=== PATIENT | female | born 1990 | race Caucasian/White ===

== ENCOUNTER 2019-08-13 15:24 | Observation (INO) | payer OTHER, SELFPAY ==
--- NOTE | 2019-08-13 15:45 | OBADM ---
This patient, Danyelle Jha, admitted to the OB room 116 for observation for c/o possible leakage of fluid, vaginal spotting, and abdominal tightening. Patient/family oriented to hospital policies and general routines including ID bracelet, bed and alarms, visiting hours, pain management, procedures, bathroom and other care routines, personal items, smoking policy, room service/diet, and visiting hours. Patient/Family are encouraged to report perceived risks to care and to ask questions if they do not understand what they are told or what they should do.
[2019-08-13 15:54] VITALS: BP 113/67; PULSE 83
[2019-08-13 15:55] VITALS: TEMP 36.5
[2019-08-13 16:00] VITALS: BMI 23.1
[2019-08-13 17:03] VITALS: BP 107/60; PULSE 75
--- NOTE | 2019-08-13 17:30 | P.HP_ITS ---
Obstetrics - Admit Note Admission Note: late entry from 1730 on 08/13/19 29 y/o at 15 weeks here with leakage of fluid and a little spotting. [place] some cramping while driving to the hospital, but all symptoms had resolved by the time I saw her. No fever. Feeling occasional movement. No GI/ symtpoms. AVSS FHR auscultated ABD soft, nontender, gravid EXT nontender Cervix closed per RN. No fluid seen. Bedside ultrasound by me: single, live IUP with FHR, movement, adequate AFV. Fundal placenta. Cervix appears long, closed. A: Leakage of fluid and spotting, no evidence of ROM. Clinically stable. P: Home with precautions. F/u as scheduled.
== END 2019-08-13 17:56 | disposition home or self-care (01) ==
PROVIDERS: Admitting Provider Obstetrics & Gynecology; PCP Family Medicine; Visit Provider Obstetrics & Gynecology
DX: O42.912 Preterm premature rupture of membranes, unspecified as to length of time between rupture and onset of labor, second trimester (principal); O26.852 Spotting complicating pregnancy, second trimester; Z3A.15 15 weeks gestation of pregnancy
CPT/HCPCS: 84112; G0378; G0379

== ENCOUNTER 2019-10-17 22:59 | Observation (INO) | payer OTHER, SELFPAY ==
[2019-10-17 23:22] VITALS: TEMP 36.8
[2019-10-17 23:38] VITALS: BP 130/71; PULSE 84
[2019-10-17 23:45] VITALS: BP 117/57; PULSE 76
[2019-10-17 23:45] LABS: Add Urine Microscopic? NO; Appearance Urine Clear (Clear); Bilirubin Urine Negative (Negative); Blood Urine Negative (Negative); Color Urine Colorless (Yellow); Glucose Urine UA Negative (Negative); Ketones Urine Negative (Negative); Leukocyte Esterase Ur Negative LEU/UL (NEGATIVE); Nitrate Urine Negative (Negative); Protein Urine Negative (Negative); Urobilinogen Urine Negative mg/dL (<2.0)
[2019-10-17 23:51] LABS: Specific Grav Ur 1.003 (1.001-1.035)
[2019-10-18] VITALS (20 sets, daily range): BP systolic 108–115; BP diastolic 54–58; PULSE 77–103; O2SAT 99–100; BMI 24.3
[2019-10-18] MEDS: TERBUTALINE SULFATE 1 MG/ML VIAL 0.25 MG SUB-Q (00:22)
[2019-10-18 01:33] LABS: Fetal Fibronectin Negative
--- NOTE | 2019-10-18 01:34 | LDADM ---
This patient, Danyelle Jha, was admitted to OB Post 117 on 10/17/19 at 22:59. Plans for labor, pain management and were discussed with patient. Patient/family oriented to hospital policies and general routines including ID bracelet, bed and alarms, visiting hours, pain management, procedures, bathroom and other care routines, personal items, smoking policy, room service/diet and guest tray routines, infant security routines, and visiting hours. Patient/Family are encouraged to report perceived risks to care and to ask questions if they do not understand what they are told or what they should do. See OBIX for further documentation.
--- NOTE | 2019-10-21 13:41 | PM.OBTRLD ---
OB - Triage/Final Diagnosis Evaluation Laboratory results: Laboratory Tests 10/17/19 10/18/19 23:32 00:36 Urine Color Colorless Urine Appearance Clear Urine pH 7.0 Ur Specific [place] 1.003 Urine Protein Negative Urine Glucose (UA) Negative Urine Ketones Negative Ur Blood (Man) Negative Urine Nitrate Negative Urine Bilirubin Negative Urine Urobilinogen Negative Ur Leukocyte Esterase Negative Fibronectin Negative Final Diagnosis (1) False labor: Code(s): O47.9 - False labor, unspecified Status: Acute
== END 2019-10-18 02:08 | disposition home or self-care (01) ==
PROVIDERS: Admitting Provider Obstetrics & Gynecology; PCP Family Medicine; Visit Provider Obstetrics & Gynecology
DX: O47.1 False labor at or after 37 completed weeks of gestation (principal); Z3A.40 40 weeks gestation of pregnancy
CPT/HCPCS: 81003; 82731; 87086; 96372; G0378; G0379; J3105

== ENCOUNTER 2019-11-23 10:48 | Outpatient (RCR) | payer OTHER, SELFPAY ==
[2019-11-25] MEDS: RHO(D) IMMUNE GLOBULIN 300 MCG SYRINGE IM (15:23)
== END 2020-02-21 23:59 | disposition home or self-care (01) ==
LOC: ANHLAB 10:48
PROVIDERS: PCP Family Medicine; Visit Provider Obstetrics & Gynecology
DX: O36.0990 Maternal care for other rhesus isoimmunization, unspecified trimester, not applicable or unspecified (principal); Z3A.00 Weeks of gestation of pregnancy not specified; Z29.13 Encounter for prophylactic Rho(D) immune globulin
CPT/HCPCS: 36415; 85461; 90384; 96372; J2790

== ENCOUNTER 2019-12-28 16:22 | Outpatient (RCR) | payer OTHER, SELFPAY ==
[2019-12-28 17:06] VITALS: BP 106/59; PULSE 80
== END 2020-02-09 13:46 | disposition home or self-care (01) ==
LOC: ANHOBOP 16:22
PROVIDERS: PCP Family Medicine; Visit Provider Obstetrics & Gynecology
DX: O36.8130 Decreased fetal movements, third trimester, not applicable or unspecified (principal); Z3A.34 34 weeks gestation of pregnancy
CPT/HCPCS: 59025

== ENCOUNTER 2020-02-02 05:04 | Inpatient (IN) | payer OTHER, SELFPAY ==
[2020-02-02] VITALS (131 sets, daily range): BP systolic 78–131; BP diastolic 40–84; PULSE 60–97; RESP 16; TEMP 36.3–36.6; O2SAT 98–100; BMI 28.3
--- NOTE | 2020-02-02 05:39 | LDADM ---
This patient, Danyelle Jha, was admitted to Labor/Delivery/Recovery 105 on 02/02/20 at 05:04. Plans for labor, pain management and were discussed with patient. Patient/family oriented to hospital policies and general routines including ID bracelet, bed and alarms, visiting hours, pain management, procedures, bathroom and other care routines, personal items, smoking policy, room service/diet and guest tray routines, infant security routines, and visiting hours. Patient/Family are encouraged to report perceived risks to care and to ask questions if they do not understand what they are told or what they should do. See OBIX for further documentation.
[2020-02-02 05:40] LABS: Basophils Percent Auto 0.2 % (0.2-1.2); Eosinophils Percent Auto 0.2 % (0-4.4); Hematocrit 33.2 % (37.0-47.0); Hemoglobin 11.3 g/dL (12.0-15.0); Immature Granulocyte Absolute 0.02 K/mm3 (0.00-0.031); Immature Granulocyte Percent A 0.3 % (0-0.5); Lymphocytes Percent Auto 22.3 % (18.3-44.2); Mean Corpuscular Hemoglobin 30.6 pg (26-34); Mean Platelet Volume 10.9 fl (7.4-10.4); Monocytes Absolute Auto 0.4 K/mm3 (0.1-0.6); Monocytes Percent Auto 6.5 % (2.6-8.5); Neutrophils Absolute Auto 4.4 K/mm3 (1.3-6.7); Neutrophils Percent Auto 70.5 % (45.5-73.1); Platelet Count Result 162 k/mm3 (150-375); Red Blood Count 3.69 M/mm3 (4.2-5.4); Red Cell Distribution Width 13.2 % (11.5-14.5); White Blood Count 6.3 K/mm3 (4.5-10.0)
[2020-02-02] MEDS: LACTATED RINGERS 1,000 ML 125 ML IV CONT ×3 (05:51→08:18)
[2020-02-02] MEDS: OXYTOCIN 30 UNITS/NS 500 ML 30 UNITS/500 ML BAG IV CONT (05:51)
[2020-02-02] MEDS: AMPICILLIN 2 GM/NS 100 ML 2 GM/100 ML BAG IVPB (05:51)
--- NOTE | 2020-02-02 06:47 | PM.IMHP ---
H&P: HPI History of Present Illness Chief complaint: IOL Narrative: Danyelle Jha is a 29 year old female Two 3 P2 whose last menstrual period was 05/04/2019, EDC is 02/02/2020, presents at 40 weeks gestation for induction of labor. She has an 8 week ultrasound confirming dates. She is positive for group B strep Review of Systems Review of Systems: All systems reviewed & are unremarkable except as noted in HPI and below PMFSH Surgical History Surgical History History of laryngoscopy Family History Family History Sibling Family history of thyroid disease Family history of mental disorder Depression Father Family history of hypercholesterolemia Hypertension Social History Social History Smoking status: Never smoker Second hand tobacco smoke exposure: No Alcohol intake: current Substance use: never Gender identity (if verbalized by the patient): Female Spiritual care concerns: No Meds Home Medications and Allergies Home Medications Medication Instructions Recorded Confirmed Type PNV cmb#95-ferrous fumarate-FA 1 tablet PO DAILY 08/13/19 08/13/19 History [] nifedipine [Procardia] 10 mg PO Q8H PRN 01/04/20 01/04/20 History Allergies Allergy/AdvReac Type Severity Reaction Status Date / Time No Known Allergies Allergy Verified 08/13/19 17:10 Vital Signs Vital Signs - 24 hr 02/02/20 05:21 02/02/20 05:31 02/02/20 05:46 Pulse Rate 89 91 80 Blood Pressure 118/72 95/51 L 101/63 02/02/20 06:01 02/02/20 06:31 Pulse Rate 82 82 Blood Pressure 97/62 L 113/67 Exam Const: General: no acute distress Eyes: General: appearance normal, both eyes and all related structures Neck: Neck: supple and no JVD Thyroid: thyroid normal Resp: Effort & Inspection: normal respiratory effort Auscultation: clear to auscultation bilaterally Cardio: Rate: regular rate Rhythm: regular rhythm GI: Inspection: non-distended GI Palp: Yes Soft to palpation, No Tenderness to palpation present (GI) and No Guarding due to palpation present (GI) Auscultation: normal bowel sounds : General: Yes other ( gravid soft uterus) Speculum Exam - Cervix: open ( cervix 2.5/75/2. AROM clear FHTs reassuring) Skin: General skin exam: no rashes or lesions noted Extrem: General: normal to inspection and no edema Psych: Mental Status: mental status grossly normal Affect: normal affect H&P: Results Labs Labs: Short CBC 02/02/20 Range/Units 05:32 WBC 6.3 (4.5-10.0) K/mm3 Hgb 11.3 L (12.0-15.0) g/dL Hct 33.2 L (37.0-47.0) % Plt Count 162 (150-375) k/mm3 Assessment and Plan Additional Plan impression: Term with favorable cervix /positive group B strep Plan: Medical active labor/ group B strep prophylaxis/ spontaneous vaginal delivery is expected. She has an epidural candidate
[2020-02-02 07:14] LABS: Rapid Plasma Reagin Non-Reactive (NonReactive)
--- NOTE | 2020-02-02 07:26 | WPDANESEPP ---
Anes - Eval Pre Procedure Procedure: labor epidural Date/Time: 02/02/20 07:26 Surgeon: anastacio novak Pre Op Diagnosis: IOL Patient Data Age: 29 Gender: F Height: 1.68 m Weight: 79.5 kg Last Vital Signs Pulse 70 02/02/20 07:01 BP 110/66 02/02/20 07:01 Allergies Allergy/AdvReac Type Severity Reaction Status Date / Time No Known Allergies Allergy Verified 08/13/19 17:10 Home Medications Medication Instructions Recorded Confirmed Type PNV cmb#95-ferrous fumarate-FA 1 tablet PO DAILY 08/13/19 08/13/19 History [] nifedipine [Procardia] 10 mg PO Q8H PRN 01/04/20 01/04/20 History Laboratory Tests 02/02/20 02/02/20 02/02/20 05:32 05:32 05:32 WBC 6.3 K/mm3 K/mm3 (4.5-10.0) RBC 3.69 M/mm3 L M/mm3 (4.2-5.4) Hgb 11.3 g/dL L g/dL (12.0-15.0) Hct 33.2 % L % (37.0-47.0) MCV 90.0 fl fl (80-100) MCH 30.6 pg pg (26-34) MCHC 34.0 g/dl g/dl (32-36) RDW 13.2 % % (11.5-14.5) Plt Count 162 k/mm3 k/mm3 (150-375) MPV 10.9 fl H fl (7.4-10.4) Immature Gran % (Auto) 0.3 % % (0-0.5) Neut % (Auto) 70.5 % % (45.5-73.1) Lymph % (Auto) 22.3 % % (18.3-44.2) [place] % (Auto) 6.5 % % (2.6-8.5) Eos % (Auto) 0.2 % % (0-4.4) Baso % (Auto) 0.2 % % (0.2-1.2) Lymph # (Auto) 1.40 K/mm3 K/mm3 (0.9-3.2) [place] # (Auto) 0.4 K/mm3 K/mm3 (0.1-0.6) Eos # (Auto) 0.0 K/mm3 K/mm3 (0-0.3) Baso # (Auto) 0.0 K/mm3 K/mm3 (0.0-0.1) Abs Immat Gran (auto) 0.02 K/mm3 K/mm3 (0.00-0.031) Absolute Neuts (auto) 4.4 K/mm3 K/mm3 (1.3-6.7) Absolute Nucleated RBC 0.0 K/mm3 K/mm3 (0.0-0.012) Nucleated RBC % 0.0 % % (0.0-0.2) RPR Non-reactive (NonReactive) Blood Type O Negative Antibody Screen Positive Antibody Identification Pending Antigen Identification Pending ARNALDO, IgG Interpret Pending ARNALDO, Poly Interpret Pending ARNALDO, Complement Interp Pending Patient hx anesthesia problems: none Family hx anesthesia problems: none PMFSH Surgical History Surgical History History of laryngoscopy Family History Family History Sibling Family history of thyroid disease Family history of mental disorder Depression Father Family history of hypercholesterolemia Hypertension Social History Social History Smoking status: Never smoker Second hand tobacco smoke exposure: No Alcohol intake: current Substance use: never Gender identity (if verbalized by the patient): Female Spiritual care concerns: No Exam Day of Procedure 02/02/20 07:26
[2020-02-02] MEDS: AMPICILLIN 1 GM/NS 50 ML 1 GM/50 ML BAG IVPB (09:46)
--- NOTE | 2020-02-02 12:32 | P.PNOB_ITS ---
OB - PN: Subj Subjective Date/time seen: 02/02/20 12:32 Interval history: fhts reassuring last check 4 cm epidural working OB - PN: Obj Data Labs CBC & Chem 7: 02/02/20 05:32 Labs: Laboratory Results - last 24 hr 02/02/20 02/02/20 02/02/20 05:32 05:32 05:32 WBC 6.3 RBC 3.69 L Hgb 11.3 L Hct 33.2 L MCV 90.0 MCH 30.6 MCHC 34.0 RDW 13.2 Plt Count 162 MPV 10.9 H Immature Gran % (Auto) 0.3 Neut % (Auto) 70.5 Lymph % (Auto) 22.3 [place] % (Auto) 6.5 Eos % (Auto) 0.2 Baso % (Auto) 0.2 Lymph # (Auto) 1.40 [place] # (Auto) 0.4 Eos # (Auto) 0.0 Baso # (Auto) 0.0 Abs Immat Gran (auto) 0.02 Absolute Neuts (auto) 4.4 Absolute Nucleated RBC 0.0 Nucleated RBC % 0.0 RPR Non-reactive Blood Type O Negative Antibody Screen Positive Antibody Identification Passive Due to RH Imm Glob Antigen Identification Cancelled ARNALDO, IgG Interpret Not Performed ARNALDO, Poly Interpret Negative ARNALDO, Complement Interp Not Performed OB - PN A/P Time Spent With Patient Time: Total time spent is greater than 50% in coordination of care (as documented) at patient's floor/unit and/or counseling patient:
--- NOTE | 2020-02-02 14:25 | PM.OBPRVD ---
OB - Delivery Note Procedure Delivery date: 02/02/20 Intrapartal events: None Induction method: AROM Delivery augmentation: pitocin Delivery monitor: external FHT Route of delivery: Episiotomy description: None Laceration description: Perineal - 2nd Degree Delivery repair: vicryl Specimen: No Estimated blood loss (mL): 57 Anesthesia type: Epidural Disposition: floor Complications: amp x 2 for gbs Baby Date of : 02/02/20 Time of : 14:14 Weeks of gestation at delivery: 40 gender: Male Weight (pounds): 9 Weight (ounces): 9 presentation: vertex position: Right Occiput Anterior Placenta delivery description: Spontaneous cord vessel description: 3 Vessels and Nuchal Cord score one minute: 9 score five minutes: 9
--- NOTE | 2020-02-02 14:26 | P.DS_ITS ---
DS: Admitting Diagnosis Admitting Diagnosis Admitting Diagnosis: term iup DS: Summary Time Spent with Patient Time attestation: Total time spent providing and/or coordinating discharge services: Exam Const: General: no acute distress Eyes: General: appearance normal, both eyes and all related structures Neck: Neck: supple and no JVD Thyroid: thyroid normal Resp: Effort & Inspection: normal respiratory effort Auscultation: clear to auscultation bilaterally Cardio: Rate: regular rate Rhythm: regular rhythm GI: Inspection: non-distended GI Palp: Yes Soft to palpation, No Tenderness to palpation present (GI) and No Guarding due to palpation present (GI) Auscultation: normal bowel sounds : General: Yes bladder normal to palpation External Female Exam: normal external appearance Speculum Exam - Vagina: normal vaginal discharge and No vaginal bleeding Speculum Exam - Cervix: nontender Bimanual exam- vagina & uterus: bladder normal to palpation and No Cervical tenderness present OB/external & speculum: No vaginal bleeding Skin: General skin exam: no rashes or lesions noted Extrem: General: normal to inspection and no edema Psych: Mental Status: mental status grossly normal Affect: normal affect DS: Data Data Completed and Pending Labs on day of discharge: Labs from last 24 hours 02/02/20 02/02/20 02/02/20 05:32 05:32 05:32 WBC 6.3 RBC 3.69 L Hgb 11.3 L Hct 33.2 L MCV 90.0 MCH 30.6 MCHC 34.0 RDW 13.2 Plt Count 162 MPV 10.9 H Immature Gran % (Auto) 0.3 Neut % (Auto) 70.5 Lymph % (Auto) 22.3 [place] % (Auto) 6.5 Eos % (Auto) 0.2 Baso % (Auto) 0.2 Lymph # (Auto) 1.40 [place] # (Auto) 0.4 Eos # (Auto) 0.0 Baso # (Auto) 0.0 Abs Immat Gran (auto) 0.02 Absolute Neuts (auto) 4.4 Absolute Nucleated RBC 0.0 Nucleated RBC % 0.0 RPR Non-reactive Blood Type O Negative Antibody Screen Positive Antibody Identification Passive Due to RH Imm Glob Antigen Identification Cancelled ARNALDO, IgG Interpret Not Performed ARNALDO, Poly Interpret Negative ARNALDO, Complement Interp Not Performed Discharge Plan Discharge Attending physician on discharge: Moncho Tinsley Discharging Clinician: Moncho Tinsley Patient Disposition: Home, Self-Care Activity: may shower, no straining, may drive after 2 weeks and pelvic rest Diet: heart healthy Patient Instructions: Antibiotic Form Stand Alone Forms: General Discharge Information Follow-up/Referrals: Moncho Tinsley MD [Physician] - Discharge Medications: Continued PNV cmb#95-ferrous fumarate-FA [] 28 mg iron- 800 mcg Tablet 1 tablet PO DAILY RF: 0 nifedipine [Procardia] 10 mg Capsule 10 mg PO Q8H PRN (Reason: Premature Labor) RF: 0 Date of admission: 02/02/20 05:04 Primary Care Provider: Jassi Waite Admitting Provider: Moncho Tinsley Attending physician on admission: Moncho Tinsley
[2020-02-02] MEDS: OXYTOCIN 30 UNITS/NS 500 ML 30 UNITS/500 ML BAG 125 UNITS IV CONT (15:02)
[2020-02-02] MEDS: BENZOCAINE 20% AER SPR (*SP) 56 GM CAN 1 SPRAY TOPICAL (17:40)
[2020-02-02] MEDS: IBUPROFEN 600 MG TABLET PO (17:40)
[2020-02-02] MEDS: WITCH HAZEL 40 PADS 1 PAD TOPICAL (17:40)
--- NOTE | 2020-02-02 17:55 | OBPPTRN ---
Patient transferred to room #283 via W/C. Support person present. Oriented to unit, room, information board, rooming in, admission packet and security measures. Patient verbalizes understanding.
[2020-02-02] MEDS: ACETAMINOPHEN 325 MG TABLET 650 MG PO (21:30)
[2020-02-03] MEDS: IBUPROFEN 600 MG TABLET PO ×2 (02:40→16:28)
[2020-02-03 05:00] LABS: Hematocrit 30.9 % (37.0-47.0); Hemoglobin 10.3 g/dL (12.0-15.0)
--- NOTE | 2020-02-03 07:34 | WPDANLDPN2 ---
Anes-Prog Note L&D Date/Time: 02/03/20 07:34 Comfortable throughout: labor and delivery Neuraxial method: epidural Epidural/Spinal procedure site: clean & non-tender Neuro status: Neuro function grossly intact. Cardiovascular status: normal Respiratory status: normal Airway patency: baseline Mental status: baseline Post-Op hydration status: normal Vital Signs: Last Vital Signs Temp 36.3 C L 02/02/20 17:47 Pulse 88 02/02/20 17:47 Resp 16 02/02/20 17:47 BP 116/67 02/02/20 17:47 Pulse Ox 98 02/02/20 17:47 I/O: Intake & Output 02/02/20 02/02/20 02/03/20 15:59 23:59 07:59 Intake Total 2049 Output Total 175 Balance 2049 - Post-procedural complaints: none Patient feedback: Patient satisfied with anesthetic care.
[2020-02-03 07:50] VITALS: BP 114/66; PULSE 77; RESP 16; TEMP 36.5; O2SAT 100
[2020-02-03] MEDS: ACETAMINOPHEN 325 MG TABLET 650 MG PO (08:34)
[2020-02-03] MEDS: MULTIVIT/MIN/PREN/FOL AC/IRON TABLET 1 TAB PO (08:35)
[2020-02-03] MEDS: DOCUSATE SODIUM 100 MG CAPSULE PO ×2 (08:35→16:29)
--- NOTE | 2020-02-03 12:30 | PC.NURSE ---
Consult with pt., this is mother's third child to breastfeed. Mother is able to independently latch with appropriate positioning/alignment. She denies any nipple discomfort, is feeding as required and waking to feed if needed. Reviewed feeding cues, frequencies, duration of feedings, feeding elimination flow sheet, and signs of adequate intake. Nipple care reviewed. Instructed mother to call out for RN assistance if she is unable to latch for feeding or she has discomfort with nursing. Instructed feeding should be initiated three hours from start of last feeding or if feeding cues are noted before. Mother voiced understanding of information shared.
[2020-02-03 19:05] VITALS: BP 113/65; PULSE 74; RESP 16; TEMP 36.7; O2SAT 99
--- NOTE | 2020-02-03 22:27 | PC.NURSE ---
Patient viewed the discharge video Mother & Baby Care, The First Two Weeks . Patient was given the opportunity and encouraged to ask questions. Patient verbalized understanding of information shared and has been given the mother/baby guide for home reference.
[2020-02-04] MEDS: ACETAMINOPHEN 325 MG TABLET 650 MG PO (00:42)
[2020-02-04] MEDS: IBUPROFEN 600 MG TABLET PO ×2 (01:33→08:28)
--- NOTE | 2020-02-04 06:40 | P.PNOB_ITS ---
OB - PN: Subj Subjective Date/time seen: 02/04/20 06:40 Interval history: fhts reassuring last check 4 cm epidural working Patient comments: no complaints and pain well controlled [place] baby status: doing well and nursing well OB - PN: Obj Data Labs CBC & Chem 7: 02/03/20 03:30 OB - PN A/P Plan day: 2 Plan: routine care, discharge home and follow up 6 weeks Time Spent With Patient Time: Total time spent is greater than 50% in coordination of care (as documented) at patient's floor/unit and/or counseling patient: Time with patient: less than 15 minutes Review of Systems Review of Systems: All systems reviewed & are unremarkable except as noted in HPI and below Exam Const: General: no acute distress Eyes: General: appearance normal, both eyes and all related structures Neck: Neck: supple and no JVD Thyroid: thyroid normal Resp: Effort & Inspection: normal respiratory effort Auscultation: clear to auscultation bilaterally Cardio: Rate: regular rate Rhythm: regular rhythm GI: Inspection: non-distended GI Palp: Yes Soft to palpation, No Tenderness to palpation present (GI) and No Guarding due to palpation present (GI) Auscultation: normal bowel sounds : General: Yes bladder normal to palpation External Female Exam: normal external appearance Speculum Exam - Vagina: normal vaginal discharge and No vaginal bleeding Speculum Exam - Cervix: nontender Bimanual exam- vagina & uterus: bladder normal to palpation and No Cervical tenderness present OB/external & speculum: No vaginal bleeding Skin: General skin exam: no rashes or lesions noted Extrem: General: normal to inspection and no edema Psych: Mental Status: mental status grossly normal Affect: normal affect
[2020-02-04 07:45] VITALS: BP 102/69; PULSE 67; RESP 18; TEMP 36.8; O2SAT 99
[2020-02-04] MEDS: DOCUSATE SODIUM 100 MG CAPSULE PO (08:28)
[2020-02-04] MEDS: MULTIVIT/MIN/PREN/FOL AC/IRON TABLET 1 TAB PO (08:28)
--- NOTE | 2020-02-04 09:00 | PC.NURSE ---
Mother is able to independently latch infant with appropriate positioning/alignment. She denies any nipple discomfort, is feeding as required and waking to feed if needed. has had at least 8 effective feedings in the past 24 hours, and is currently meeting outcomes for weight, output, jaundice and feeding frequencies. Mother states she feels confident to continue effective at home. Reviewed transition to breast milk, signs of adequate intake, and engorgement/relief. Instructed to call ICP if intake/output less than required. Reviewed regular medications mother is taking. Information provided per Vanesa. Reviewed community resources on the [facility] website and in the Mom/Baby guide. Information on outpatient services provided. Mother has no further questions at this time.
[2020-02-05 15:28] VITALS: BP 121/75; PULSE 73; RESP 16; TEMP 37.3; O2SAT 100
== END 2020-02-04 11:50 | disposition home or self-care (01) | DRG 807 ==
LOC: ANHLDR 05:08 → ANHOB2 18:06
PROVIDERS: Admitting Provider Obstetrics & Gynecology; PCP Family Medicine; Visit Provider Obstetrics & Gynecology
DX: O99.824 Streptococcus B carrier state complicating childbirth (principal); Z37.0 Single live birth; Z3A.40 40 weeks gestation of pregnancy; O70.1 Second degree perineal laceration during delivery; O69.81X0 Labor and delivery complicated by cord around neck, without compression, not applicable or unspecified
CPT/HCPCS: 36415; 84112; 85014; 85018; 85025; 86592; 86850; 86880; 86900; 86901; 86902; A9270; J0290; J2590; J2795; J7120

== ENCOUNTER → 2020-07-19 16:15 | Outpatient (CLI) | payer OTHER, SELFPAY ==
--- NOTE | ~2020-07-19 | US_ITS ---
EXAMINATION: US thyroid DATE: 07/19/2020 16:29 INDICATION: Nontoxic goiter. TECHNIQUE: Multiple ultrasound images of the thyroid were obtained. COMPARISON: Ultrasound 02/10/2019 FINDINGS: The right thyroid lobe measures 4.6 x 1.7 x 1.3 cm. The left thyroid lobe measures 4.6 x 1.0 x 1.7 c m. The thyroid demonstrates diffusely heterogeneous hypoechogenicity and increased vascularity. In t he left thyroid lobe, there is a 6 mm solid, very hyperechoic, [id number] nodule with smooth mar gin without echogenic foci (TI-RADS TR4). IMPRESSION: 1. Heterogeneous, hypervascular thyroid, consistent with chronic lymphocytic (Sae) thyroiditis. 2. Small thyroid nodule, likely not clinically significant. No follow-up is needed. Reviewed, dictated and finalized at location A. [facility] IMPRESSION: 1. Heterogeneous, hypervascular thyroid, consistent with chronic lymphocytic (H ashimoto) thyroiditis. 2. Small thyroid nodule, likely not clinically significant. No follow-up is nee ded.
== END ==
PROVIDERS: Visit Provider Internal Medicine Endocrinology, Diabetes & Metabolism
DX: E04.9 Nontoxic goiter, unspecified (principal)
CPT/HCPCS: 76536

== ENCOUNTER → 2020-12-26 07:47 | Outpatient (CLI) | payer OTHER, SELFPAY ==
--- NOTE | ~2020-12-26 | XR_ITS ---
EXAMINATION: XR thoracic spine 3V DATE: 12/26/2020 08:18 INDICATION: Thoracic radiculopathy TECHNIQUE: AP, lateral and lateral swimmer's views of the thoracic spine were obtained. COMPARISON: None. FINDINGS: There is no fracture, dislocation, or subluxation. The vertebral body heights, alignment, a nd intervertebral disc spaces are normal. Mild mid thoracic dextrocurvature is noted. IMPRESSION: 1. No acute osseous abnormality. Reviewed, dictated and finalized at location A.
--- NOTE | ~2020-12-26 | US_ITS ---
US abdomen complete EXAMINATION: US Abdomen Complete INDICATION: Left-sided abdomen pain PROCEDURE: Realtime High Resolution abdomen ultrasound. COMPARISON: No prior studies for comparison FINDINGS: Gallbladder within normal limits. No gallstones, pericholecystic fluid, gallbladder wall t hickening or biliary dilatation. Common bile duct measures 3 mm. Liver echotexture within normal limits without focal mass. Pancreas within normal limits. Pancreati c tail is obscured by bowel gas. Spleen is unremarkeable. Renal echotexture is within normal limits bilaterally without hydronephrosis, contour deforming mass or renal stone. Right kidney measures 10.8 cm. Left kidney measures 10.5 cm. Visualized aspects of the aorta and IVC are within normal limits. Portal vein is patent. No sonograph ic Dunaway's sign indicated by the technologist. IMPRESSION: 1: Normal abdominal ultrasound. Reviewed, dictated and finalized at location B.
== END ==
PROVIDERS: PCP Physician Assistant; Visit Provider Physician Assistant
DX: R10.9 Unspecified abdominal pain (principal); M54.14 Radiculopathy, thoracic region
CPT/HCPCS: 72072; 76700

== ENCOUNTER 2022-01-23 19:47 | Observation (INO) | payer OTHER, SELFPAY ==
[2022-01-23 20:03] VITALS: BP 112/57; PULSE 75
[2022-01-23 20:13] VITALS: BMI 23.6
[2022-01-23 20:30] LABS: Bilirubin Urine Negative (Negative); Blood Urine Negative (Negative); Glucose Urine UA Negative (Negative); Ketones Urine Negative (Negative); Leukocyte Esterase Ur Negative LEU/UL (Negative); Nitrate Urine Negative (Negative); Protein Urine Negative (Negative); Urobilinogen Urine 0.2 mg/dL (<2.0)
[2022-01-23 20:32] LABS: Color Urine Light Yellow (Yellow)
[2022-01-23 20:33] LABS: Add Urine Microscopic? YES; Appearance Urine Cloudy (Clear)
[2022-01-23 20:36] LABS: Amorphous Sediment Urine Few; Bacteria Urine Trace /hpf; Mucus Urine Rare /lpf; RBC Urine 0-2 /hpf (0-2); Squamous Epithelial Cell Urine Rare /hpf (Few); WBC Urine 0-3 /hpf
--- NOTE | 2022-01-23 21:10 | PC.NURSE ---
Called Dr. Rudd notified pt admisson for cramping. UA result, soft abdomen while pt claim cramping. Pt complains cramping higher than fundus. Okay to discharge at this time. follow up in office in 2 days.
--- NOTE | 2022-02-13 23:55 | PM.OBTRLD ---
OB - Triage/Final Diagnosis Visit Information Comments/Additional reasons for admission: I have assessed the risk for this patient, Danyelle Jha, and determined that she would benefit from observation care. Evaluation Laboratory results: Laboratory Tests 01/23/22 20:17 Urine Color Light yellow Urine Appearance Cloudy H Urine pH 7.0 Ur Specific [place] 1.020 Urine Protein Negative Urine Glucose (UA) Negative Urine Ketones Negative Ur Blood (Man) Negative Urine Nitrate Negative Urine Bilirubin Negative Urine Urobilinogen 0.2 Leukocyte Esterase Rfl Negative Urine RBC 0-2 Urine WBC 0-3 Ur Squamous Epith Cells Rare Amorphous Sediment Few H Urine Bacteria Trace Urine Mucus Rare Final Diagnosis (1) False labor: Code(s): O47.9 - False labor, unspecified Status: Acute
== END 2022-01-23 21:20 | disposition home or self-care (01) ==
PROVIDERS: Admitting Provider Obstetrics & Gynecology; PCP Physician Assistant; Visit Provider Obstetrics & Gynecology
DX: O47.02 False labor before 37 completed weeks of gestation, second trimester (principal); Z3A.18 18 weeks gestation of pregnancy
CPT/HCPCS: 81001; G0378; G0379

== ENCOUNTER 2022-04-11 20:55 | Outpatient (RCR) | payer OTHER, SELFPAY ==
[2022-04-11] MEDS: RHO(D) IMMUNE GLOBULIN 300 MCG/2 ML SYRINGE IM (21:08)
== END 2022-07-08 23:59 | disposition home or self-care (01) ==
LOC: ANHLAB 20:55
PROVIDERS: PCP Physician Assistant; Visit Provider Obstetrics & Gynecology
DX: Z29.13 Encounter for prophylactic Rho(D) immune globulin (principal); O36.0190 Maternal care for anti-D [Rh] antibodies, unspecified trimester, not applicable or unspecified; Z3A.00 Weeks of gestation of pregnancy not specified
CPT/HCPCS: 36415; 85461; 90384; 96372; J2790

== ENCOUNTER 2022-06-04 15:38 | Observation (INO) | payer OTHER, SELFPAY ==
--- NOTE | 2022-06-04 15:38 | OBADM ---
This patient, Danyelle Jha, admitted to the OB room Labor/Delivery/Recovery 103 for observation. Patient/family oriented to hospital policies and general routines including ID bracelet, bed and alarms, visiting hours, pain management, procedures, bathroom and other care routines, personal items, smoking policy, room service/diet, and visiting hours. Patient/Family are encouraged to report perceived risks to care and to ask questions if they do not understand what they are told or what they should do. Pt states she was checked on cervix at MD visit. had vaginal bleeding at home.
--- NOTE | 2022-06-04 16:00 | PC.NURSE ---
SVE 1/thick/high. dark red vaginal bleeding noted on the glove. pt denies feeling of contractions.
--- NOTE | 2022-06-04 16:35 | PC.NURSE ---
called Dr. Wandy Lester notified pt admission for vaginal bleeding. SVE result and reactive tracing. scant amount of dark red beeding with cervical check reported. Okay to discharge
--- NOTE | 2022-06-06 07:39 | PM.OBTRLD ---
OB - Triage/Final Diagnosis Visit Information Reason for evaluation: threatened labor Comments/Additional reasons for admission: I have assessed the risk for this patient, Danyelle Jha, and determined that she would benefit from observation care.
== END 2022-06-04 16:45 | disposition home or self-care (01) ==
PROVIDERS: Admitting Provider Obstetrics & Gynecology; PCP Physician Assistant; Visit Provider Obstetrics & Gynecology
DX: O47.9 False labor, unspecified (principal); Z3A.00 Weeks of gestation of pregnancy not specified
CPT/HCPCS: G0378; G0379

== ENCOUNTER 2022-06-14 05:09 | Inpatient (IN) | payer OTHER, SELFPAY ==
[2022-06-14] VITALS (164 sets, daily range): BP systolic 56–137; BP diastolic 42–100; PULSE 32–146; RESP 16; TEMP 36.4–36.9; O2SAT 98–100; BMI 27.0
[2022-06-14] MEDS: LACTATED RINGERS 1,000 ML 125 ML IV CONT ×2 (05:44→08:35)
[2022-06-14] MEDS: OXYTOCIN 30 UNITS/NS 500 ML 30 UNITS/500 ML BAG IV CONT (05:45)
[2022-06-14 05:48] LABS: Basophils Percent Auto 0.3 % (0.2-1.2); Eosinophils Absolute Auto 0.1 K/mm3 (0-0.3); Eosinophils Percent Auto 0.8 % (0-4.4); Hemoglobin 10.8 g/dL (12.0-15.0); Immature Granulocyte Absolute 0.03 K/mm3 (0.00-0.031); Immature Granulocyte Percent A 0.4 % (0-0.5); Lymphocytes Absolute Auto 1.63 K/mm3 (0.9-3.2); Lymphocytes Percent Auto 22.1 % (18.3-44.2); Mean Corpuscular HGB Conc 32.7 g/dl (32-36); Mean Corpuscular Hemoglobin 29.3 pg (26-34); Mean Corpuscular Volume 89.4 fl (80-100); Mean Platelet Volume 10.3 fl (7.4-10.4); Monocytes Absolute Auto 0.5 K/mm3 (0.1-0.6); Monocytes Percent Auto 6.2 % (2.6-8.5); Neutrophils Absolute Auto 5.2 K/mm3 (1.3-6.7); Neutrophils Percent Auto 70.2 % (45.5-73.1); Platelet Count Result 206 k/mm3 (150-375); Red Blood Count 3.69 M/mm3 (4.2-5.4); Red Cell Distribution Width 14.6 % (11.5-14.5); White Blood Count 7.4 K/mm3 (4.5-10.0)
--- NOTE | 2022-06-14 07:25 | LDADM ---
This patient, Danyelle Jha, was admitted to Labor/Delivery/Recovery 103 on 06/14/22 at 05:09. Plans for labor, pain management and were discussed with patient. Patient/family oriented to hospital policies and general routines including ID bracelet, bed and alarms, visiting hours, pain management, procedures, bathroom and other care routines, personal items, smoking policy, room service/diet and guest tray routines, infant security routines, and visiting hours. Patient/Family are encouraged to report perceived risks to care and to ask questions if they do not understand what they are told or what they should do. See OBIX for further documentation.
--- NOTE | 2022-06-14 07:53 | PM.IMHP ---
H&P: HPI History of Present Illness Date/Time: 06/14/22 07:53 Chief Complaint: Induction of labor Narrative: 32-year-old 4 para 3 whose EDC is 12 14 confirmed by early ultrasound presents at 39 weeks gestation for induction of labor. has been uncomplicated PMFSH Past Medical History Medical History Bilateral carpal tunnel syndrome Surgical History Surgical History History of laryngoscopy Family History Family History Sibling Family history of thyroid disease Family history of mental disorder Depression Father Family history of hypercholesterolemia Hypertension Social History Social History Smoking status: Never smoker Second hand tobacco smoke exposure: No Alcohol intake: current Substance use: never Lack of Transportation: No Lack of Food: Never True Current Housing: I Have Housing Concerned About Future Housing: No Difficulty Paying Gas/Electric Bills: No Difficulty Paying for Meds: No Currently Unemployed: No Education: Bachelor's Degree Difficulty w/ Childcare or Family Care: No Gender identity (if verbalized by the patient): Female Spiritual care concerns: No Meds Home Medications and Allergies Home Medications Medication Instructions Recorded Confirmed Type vit no.95-ferrous 1 tablet PO DAILY 08/13/19 06/14/22 History fumarate 28 mg-folic acid 800 mcg tablet () Allergies Allergy/AdvReac Type Severity Reaction Status Date / Time No Known Allergies Allergy Verified 06/14/22 06:35 Vital Signs Vital Signs - 24 hr 06/14/22 05:23 06/14/22 05:49 06/14/22 06:00 Pulse Rate 91 78 82 Blood Pressure 123/71 106/69 108/70 Oxygen Delivery 06/14/22 06:30 06/14/22 07:00 06/14/22 07:30 Pulse Rate 90 87 85 Blood Pressure 105/72 120/74 106/58 L Oxygen Delivery 06/14/22 07:24 Pulse Rate Blood Pressure Oxygen Delivery Room Air Exam Const: General: cooperative, healthy appearing and comfortable Nutritional Appearance: average body habitus Orientation/consciousness: oriented to person, oriented to place and oriented to time HENMT: Head: normal to inspection Resp: Effort & Inspection: normal respiratory effort Cardio: Rate: regular rate Rhythm: regular rhythm Heart sounds: S1 normal heart sound present and S2 normal heart sound present GI: Inspection: normal to inspection ( gravid soft uterus) Auscultation: normal bowel sounds : External Female Exam: normal external appearance Speculum Exam - Vagina: normal appearance of the vagina Speculum Exam - Cervix: normal appearance of the cervix ( cervix 3/75/2. AROM clear. FHTs reassuring) H&P: Results Labs Labs: Short CBC 06/14/22 Range/Units 05:27 WBC 7.4 (4.5-10.0) K/mm3 Hgb 10.8 L (12.0-15.0) g/dL Hct 33.0 L (37.0-47.0) % Plt Count 206 (150-375) k/mm3 Assessment and Plan Assessment and plan (1) Term : Code(s): Z34.90 - Encounter for supervision of normal , unspecified, unspecified trimester Status: Acute Plan medical induction of labor. Spontaneous vaginal expected. She has an epidural candidate
--- NOTE | 2022-06-14 08:39 | WPDANESEPPF ---
Anes - Initial Pre Proc Eval Procedure: labor epidural Date/Time: 06/14/22 08:39 Surgeon: Moncho Lester MD Pre Op Diagnosis: labor pain Pre Op Diagnosis: IOL Patient Data Age: 32 Gender: F Height: 1.68 m Weight: 76 kg Last Vital Signs Temp 36.4 C 06/14/22 08:00 Pulse 78 06/14/22 08:37 BP 117/54 L 06/14/22 08:37 Pulse Ox 100 06/14/22 08:34 O2 Del Method Room Air 06/14/22 07:24 Allergies Allergy/AdvReac Type Severity Reaction Status Date / Time No Known Allergies Allergy Verified 06/14/22 06:35 Home Medications Medication Instructions Recorded Confirmed Type vit no.95-ferrous 1 tablet PO DAILY 08/13/19 06/14/22 History fumarate 28 mg-folic acid 800 mcg tablet () Laboratory Tests 06/14/22 06/14/22 06/14/22 05:27 05:27 05:27 WBC 7.4 K/mm3 K/mm3 (4.5-10.0) RBC 3.69 M/mm3 L M/mm3 (4.2-5.4) Hgb 10.8 g/dL L g/dL (12.0-15.0) Hct 33.0 % L % (37.0-47.0) MCV 89.4 fl fl (80-100) MCH 29.3 pg pg (26-34) MCHC 32.7 g/dl g/dl (32-36) RDW 14.6 % H % (11.5-14.5) Plt Count 206 k/mm3 k/mm3 (150-375) MPV 10.3 fl fl (7.4-10.4) Immature Gran % (Auto) 0.4 % % (0-0.5) Neut % (Auto) 70.2 % % (45.5-73.1) Lymph % (Auto) 22.1 % % (18.3-44.2) [place] % (Auto) 6.2 % % (2.6-8.5) Eos % (Auto) 0.8 % % (0-4.4) Baso % (Auto) 0.3 % % (0.2-1.2) Lymph # (Auto) 1.63 K/mm3 K/mm3 (0.9-3.2) [place] # (Auto) 0.5 K/mm3 K/mm3 (0.1-0.6) Eos # (Auto) 0.1 K/mm3 K/mm3 (0-0.3) Baso # (Auto) 0.0 K/mm3 K/mm3 (0.0-0.1) Abs Immat Gran (auto) 0.03 K/mm3 K/mm3 (0.00-0.031) Absolute Neuts (auto) 5.2 K/mm3 K/mm3 (1.3-6.7) Absolute Nucleated RBC 0.0 K/mm3 K/mm3 (0.0-0.012) Nucleated RBC % 0.0 % % (0.0-0.2) RPR Pending Blood Type O Negative Antibody Screen Positive Antibody Identification Passive Due to RH Imm Glob Antigen Identification Cancelled ARNALDO, IgG Interpret Not Performed ARNALDO, Poly Interpret Negative ARNALDO, Complement Interp Not Performed Patient hx anesthesia problems: none Family hx anesthesia problems: none Results Review: All pre-operative results and documents have been reviewed as part of the pre-operative evaluation. [facility] Past Medical History Medical History Bilateral carpal tunnel syndrome Surgical History Surgical History History of laryngoscopy Family History Family History Sibling Family history of thyroid disease Family history of mental disorder Depression Father Family history of hypercholesterolemia Hypertension Social History Social History Smoking status: Never smoker Second hand tobacco smoke exposure: No Alcohol intake: current Substance use: never Lack of Transportation: No Lack of Food: Never True Current Housing: I Have Housing Concerned About Future Housing: No Difficulty Paying Gas/Electric Bills: No Difficulty Paying for Meds: No Currently Unemployed: No Education: Bachelor's Degree Difficulty w/ Childcare or Family Care: No Gender identity (if verbalized by the patient): Female Spiritual care concerns: No Anes - Eval Final PreProcedure Day of Procedure 06/14/22 08:39 Patient weight: obese ASA classification: II Anesthetic plan: proceed Anesthesia type and monitoring: regional epidural and standard monitoring Results Review: All pre-operative results and documents have been reviewed as part of the pre-operat
[2022-06-14] MEDS: ONDANSETRON INJ 4 MG/2 ML VIAL IV PUSH (11:15)
--- NOTE | 2022-06-14 12:36 | PM.OBPNLAB ---
Pain Control Date/time seen: 06/14/22 12:36 Pain control: tolerating well and epidural Pelvic Exam Dilation (cm): 4 station: -2 Amniotic membrane status: Leaking
--- NOTE | 2022-06-14 16:25 | PM.OBPNLAB ---
Pain Control Date/time seen: 06/14/22 16:25 Pain control: tolerating well and epidural Pelvic Exam Dilation (cm): 7 Effacement (%): 100 station: -1 Amniotic membrane status: Leaking Contractions Monitor mode: Internal
--- NOTE | 2022-06-14 17:00 | PM.OBPRVD ---
OB - Delivery Note Procedure Delivery date: 06/14/22 Procedure: mil Events: Elective Induction of Labor Induction method: AROM Delivery augmentation: Pitocin Delivery monitor: External FHT and Internal Uterine Route of delivery: Episiotomy description: None Laceration Description: Perineal - 1st Degree Delivery repair: vicryl Specimen: No Quantitative Blood Loss (ml): 60 Anesthesia type: Epidural Disposition: Floor Baby Date of : 06/14/22 Time of : 16:49 Weeks of gestation at delivery: 39 gender: Female Weight (pounds): 7 Weight (ounces): 15 presentation: vertex position: Right Occiput Anterior Placenta delivery description: Spontaneous Cord Vessel Description: 3 Vessels and Delayed Cord Clamping score one minute: 9 score five minutes: 9
[2022-06-14 17:05] LABS: Rapid Plasma Reagin Non-Reactive (NonReactive)
[2022-06-14] MEDS: BENZOCAINE 20% AER SPR (*SP) 56 GM CAN 1 SPRAY TOPICAL (19:46)
[2022-06-14] MEDS: WITCH HAZEL 40 PADS 1 PAD TOPICAL (19:46)
--- NOTE | 2022-06-14 19:50 | OBPPTRN ---
Patient transferred to post room #285 via w/c. Support person, Serjio, present. Oriented to unit, room, information board, rooming in, admission packet and security measures. Patient verbalizes understanding.
[2022-06-14] MEDS: IBUPROFEN 600 MG TABLET PO (20:30)
[2022-06-14] MEDS: ACETAMINOPHEN 325 MG TABLET 650 MG PO (21:26)
[2022-06-15 01:00] VITALS: BP 108/59; PULSE 74; RESP 16; TEMP 36.9; O2SAT 99
[2022-06-15] MEDS: IBUPROFEN 600 MG TABLET PO ×3 (02:40→16:31)
[2022-06-15 05:30] VITALS: BP 106/66; PULSE 70; RESP 14; TEMP 36.9; O2SAT 99
[2022-06-15] MEDS: ACETAMINOPHEN 325 MG TABLET 650 MG PO ×3 (05:41→20:11)
[2022-06-15 05:44] LABS: Hematocrit 27.7 % (37.0-47.0); Hemoglobin 8.7 g/dL (12.0-15.0)
[2022-06-15 08:45] VITALS: BP 111/66; PULSE 85; RESP 16; TEMP 36.2; O2SAT 99
[2022-06-15] MEDS: POLYSACCHARIDE IRON COMPLEX 150 MG CAPSULE PO ×2 (08:52→16:31)
[2022-06-15] MEDS: MULTIVIT/MIN/PREN/FOL AC/IRON TABLET 1 TAB PO (08:52)
[2022-06-15] MEDS: DOCUSATE SODIUM 100 MG CAPSULE PO ×2 (08:52→16:31)
--- NOTE | 2022-06-15 08:58 | WPDANLDPN2 ---
Anes-Prog Note L&D Date/Time: 06/15/22 08:58 Comfortable throughout: labor and delivery Neuraxial method: epidural Epidural/Spinal procedure site: clean & non-tender Neuro status: Neuro function grossly intact. Cardiovascular status: normal Respiratory status: normal Airway patency: baseline Mental status: baseline Post-Op hydration status: normal Vital Signs: Last Vital Signs Temp 98.5 F 06/15/22 05:30 Pulse 70 06/15/22 05:30 Resp 14 06/15/22 05:30 BP 106/66 06/15/22 05:30 Pulse Ox 99 06/15/22 05:30 O2 Del Method Room Air 06/14/22 20:15 Pain score (VAS): 0 I/O: Intake & Output 06/14/22 06/15/22 06/15/22 23:59 07:59 15:59 Intake Total 480 Output Total 75 Balance 405 Post-procedural complaints: none Patient feedback: Patient satisfied with anesthetic care.
[2022-06-15 11:46] VITALS: BP 94/55; PULSE 78; RESP 16; TEMP 37.1; O2SAT 98
--- NOTE | 2022-06-15 14:53 | PM.DS ---
DS: Admitting Diagnosis Discharge Date 06/16/2022 Admitting Diagnosis term DS: Discharge Diagnosis Discharge Diagnosis (1) Term : Code(s): Z34.90 - Encounter for supervision of normal , unspecified, unspecified trimester Status: Acute DS: Summary Hospital Course Reason for hospitalization: patient was admitted for induction of labor at term Hospital Course: patient was admitted for induction of labor at term. She underwent spontaneous vaginal delivery. Hospital course was. She remained she complaints. Time Spent with Patient Time attestation: Total time spent providing and/or coordinating discharge services: Exam Const: General: cooperative, healthy appearing and comfortable Nutritional Appearance: average body habitus Orientation/consciousness: oriented to person, oriented to place and oriented to time HENMT: Head: normal to inspection Resp: Effort & Inspection: normal respiratory effort GI: Inspection: normal to inspection DS: Data Data Completed and Pending Labs on day of discharge: Labs from last 24 hours 06/15/22 06/14/22 05:38 05:27 Hgb 8.7 L Hct 27.7 L RPR Non-reactive Discharge Plan Discharge Attending physician on discharge: Moncho Garcia Discharging Clinician: Moncho Garcia Patient Disposition: Home, Self-Care Activity: may shower, no straining and pelvic rest Diet: regular Discharge Instructions: Call or return if temperature above 100.4? F, increased abdominal pain, increased vaginal bleeding or any new problems. Education: Mom and Baby Guide Given to: Mother Follow-Up: Call your delivering provider's office for an appointment to be seen in: 6 Weeks Mom and baby should come to the [facility] for the follow-up appointment. Appointment Date/Time: June 18, 2022 at 9:00 am What to expect at your follow-up visit: Call [phone] if you are unable to keep your appointment time. BREAST CARE: * Wear a snug supportive bra. * For engorgement discomfort: Breast Feeding: * Apply warm moist washcloths * Express milk as needed to relieve engorgement * Wear loose clothing * For sore nipples: * Identify correct latch-on * Apply warm moist washcloths before and after nursing * Air dry nipples after nursing * May apply Lansinoh cream to nipples EPISIOTOMY/PERINEAL CARE: * Until bleeding stops, use your josafat bottle after urinating * Change your pad frequently throughout the day * You may take sitz baths several times a day (fill your bathtub with warm water and soak for 20 minutes.) Do NOT bathe in the water * No tub baths until seen by your physician - You may shower ACTIVITY: * Rest as much as possible. * Do not exercise or lift anything heavier than your baby (such as laundry or other children.) * Avoid stairs or driving as much as possible. * Do not put anything into the vagina. No douching, tampons, or sexual activity until seen by physician. NOTIFY PHYSICIAN IF YOU HAVE ANY QUESTIONS OR IF ANY OF THE FOLLOWING SYMPTOMS OCCUR: * If your episiotomy or incision becomes red, swollen, or more painful than what you have experienced in the hospital. * If your vaginal bleeding becomes foul smelling. * If your vaginal bleeding becomes more heavy than a period or if your bleeding changes from pink to bright red. However, you may pass an occasional walnut-sized clot once or twice for the first week . * If you experience a sharp, shooting pain in you calves. * If you discover a hard, reddened area on your breast or if you experience flu-like symptoms. DIET: * Eat regular, well-balanced meals. * Drink plenty of fluids daily. If , drink to thirst. Stand Alone Forms: General Discharge Information Follow-up/Referrals: Moncho Garcia MD [Physician] - Discharge
--- NOTE | 2022-06-15 15:31 | PC.NURSE ---
[id number] Reacquainted myself to the parents and consulted with patient to assess needs related to . Mother led the conversation with her?plans to feed?her , has a good history with and the?experience so far. Mother voiced understanding of information and requested assistance assessing latch related to the pinching pain at times. Mother works well with her infant with encouragement and education. Reviewed positioning and ear, shoulder, hip alignment, supporting the breast, asymmetrical latch (off-center), leading with the chin with a big open side gape and mother latches infant using the flipple technique. Encouraged mother to bring her to her breast not allowing infant to latch while laying on the boppy with her leaning over. Suggested mother latch effectively, then support her good latch reminding her of the stage of . Infant latched optimally to the right breast in cross cradle position. Mother denies pain, then after 10 minutes detaches related to pinching pain. Nipple is somewhat misshaped. Education given to mother of how to visualize suck/swallow ratios and visualize drinking at the breast while . Infant was able to maintain latch without discomfort to mother for awhile. Nipple care reviewed with optimal latch and good positioning. was repositioned to the left breast to practice latching optimally using football positioning. is content, hands open, quietly awake demonstrating no feeding cues. Mother is feeding appropriately for growth of infant and understands stimulating infant to eat if needed. Infant has had appropriate feedings in the last 24 hours meets the outcomes for weight, output and jaundice at this time. Mother states she is confident to continue effectively her at home or when to call for assistance and denies any additional assistance or education at this time. Reinforced understanding of milk production, transition of milk, signs of adequate intake, prevention/relief of engorgement, responsive after visualizing feeding cues, the different methods of stimulating infant to breastfeed 2-3 hours after the start of the last feeding, community resources, medication information reviewed per [employer] and when to call a provider using the resource of the mom and baby guide/[facility] website. Mother voiced understanding of the education shared. Reported to the primary RN.
--- NOTE | 2022-06-15 18:32 | PC.NURSE ---
pt passed an egg sized clot in the toliet, fundus is firm at 1 below. Pt told to call out if she passes another clot.
[2022-06-15 20:12] VITALS: BP 110/70; PULSE 74; RESP 16; TEMP 36.6; O2SAT 100
--- NOTE | 2022-06-16 08:35 | PM.OBPNVD ---
OB - PN: Subj Subjective Date/time seen: 06/16/22 08:35 Narrative: Pain OK. Would like to go home. OB - PN: Obj Data Labs 06/15/22 05:38 OB - PN A/P Plan Comments: A: PPD#2, doing well. P: Home to f/u 6 weeks. Exam Psych: Other: AVSS ABD soft, nontender, fundus firm EXT nontender
--- NOTE | 2022-06-16 08:38 | PM.OBDSVD ---
DS: Admitting Diagnosis Discharge Date 06/16/22 Admitting Diagnosis IUP at 39 weeks DS: Discharge Diagnosis Discharge Diagnosis (1) (normal spontaneous vaginal delivery): Code(s): O80 - Encounter for full-term uncomplicated delivery Status: Acute OB - DS: Summary OB Procedures : None OB Procedures Intrapartum: Spontaneous Vag Delivery OB Procedures: : None Time Spent with Patient Time attestation: Total time spent providing and/or coordinating discharge services: Discharge Plan Discharge Attending physician on discharge: Moncho Garcia Discharging Clinician: Moncho Garcia Patient Disposition: Home, Self-Care Activity: may shower, no straining and pelvic rest Diet: regular Discharge Instructions: Call or return if temperature above 100.4? F, increased abdominal pain, increased vaginal bleeding or any new problems. Stand Alone Forms: General Discharge Information Follow-up/Referrals: Moncho Garcia MD [Physician] - Discharge Medications: New ferrous sulfate 325 mg (65 mg iron) tablet 325 mg PO DAILY Qty: 30 0RF ibuprofen 600 mg tablet 600 mg PO Q6H PRN (Reason: cramps) Qty: 30 0RF Continued PNV cmb#95-ferrous fumarate-FA [] 28 mg iron- 800 mcg Tablet 1 tablet PO DAILY Date of admission: 06/14/22 05:09 Primary Care Provider: GageKaren Admitting Provider: Moncho Garcia Attending physician on admission: Moncho Garcia Condition: Stable
[2022-06-16] MEDS: DOCUSATE SODIUM 100 MG CAPSULE PO (09:09)
[2022-06-16] MEDS: POLYSACCHARIDE IRON COMPLEX 150 MG CAPSULE PO (09:09)
[2022-06-16] MEDS: MULTIVIT/MIN/PREN/FOL AC/IRON TABLET 1 TAB PO (09:09)
[2022-06-16 09:10] VITALS: BP 109/66; PULSE 78; RESP 18; TEMP 36.5; O2SAT 99
[2022-06-16] MEDS: IBUPROFEN 600 MG TABLET PO (09:10)
[2022-06-18 09:26] VITALS: BP 111/69; PULSE 70; RESP 20; TEMP 37.2; O2SAT 99
== END 2022-06-16 10:27 | disposition home or self-care (01) | DRG 807 ==
LOC: ANHOB2 06-16 09:33 → ANHLDR 06-19 09:52 → ANHOB2 06-19 09:52
PROVIDERS: Admitting Provider Obstetrics & Gynecology; PCP Physician Assistant; Visit Provider Obstetrics & Gynecology
DX: O62.3 Precipitate labor (principal); Z37.0 Single live birth; O70.0 First degree perineal laceration during delivery; Z3A.39 39 weeks gestation of pregnancy
CPT/HCPCS: 36415; 85014; 85018; 85025; 86592; 86850; 86880; 86900; 86901; 86902; A9270; J2405; J2590; J2795; J7120

== ENCOUNTER 2024-02-14 09:56 | Outpatient (CLI) | payer OTHER, SELFPAY ==
--- NOTE | ~2024-02-14 | XR_ITS ---
Right ankle Technique: AP and lateral views were obtained. Clinical History: Joint pain Findings: No acute fracture or dislocation is seen. Osseous alignment is anatomic. Ankle mortise and other visualized joint spaces are preserved. Soft tissues are otherwise unremarkable. Impression: Unremarkable right ankle. Reviewed, dictated and finalized at location . Impression: Unremarkable right ankle.
--- NOTE | ~2024-02-14 | XR_ITS ---
Left foot Technique: AP and lateral views were obtained. Clinical History: Joint pain Findings: No acute fracture or dislocation is seen. Osseous alignment is anatomic. Joint spaces are p reserved without erosive or degenerative change. Soft tissues are unremarkable. Impression: Unremarkable left foot radiographs. Reviewed, dictated and finalized at location . Impression: Unremarkable left foot radiographs.
--- NOTE | ~2024-02-14 | XR_ITS ---
Right foot Technique: AP and lateral views were obtained. Clinical History: Joint pain Findings: No acute fracture or dislocation is seen. Osseous alignment is anatomic. Joint spaces are p reserved without erosive or degenerative change. Soft tissues are unremarkable. Impression: Unremarkable right foot radiographs. Reviewed, dictated and finalized at location . Impression: Unremarkable right foot radiographs.
--- NOTE | ~2024-02-14 | XR_ITS ---
Left ankle Technique: AP and lateral views were obtained. Clinical History: Joint pain Findings: No acute fracture or dislocation is seen. Osseous alignment is anatomic. Ankle mortise and other visualized joint spaces are preserved. Soft tissues are otherwise unremarkable. Impression: Unremarkable left ankle. Reviewed, dictated and finalized at location . Impression: Unremarkable left ankle.
--- NOTE | ~2024-02-14 | XR_ITS ---
Left wrist Technique: PA and lateral views were obtained. Clinical History: Joint pain Findings: No acute fracture or dislocation is seen. Osseous alignment is anatomic. Joint spaces are p reserved. Soft tissues are unremarkable. Impression: Unremarkable left wrist radiographs. Reviewed, dictated and finalized at location M. Impression: Unremarkable left wrist radiographs.
--- NOTE | ~2024-02-14 | XR_ITS ---
Left Hand Technique: PA and lateral views were obtained. Clinical History: Joint pain Findings: No acute fracture or dislocation is seen. Osseous alignment is anatomic. Joint spaces are p reserved. Soft tissues are unremarkable. Impression: Unremarkable left hand. Reviewed, dictated and finalized at location M. Impression: Unremarkable left hand.
--- NOTE | ~2024-02-14 | XR_ITS ---
Right Hand Technique: PA and lateral views were obtained. Clinical History: Joint pain Findings: No acute fracture or dislocation is seen. Osseous alignment is anatomic. Joint spaces are p reserved. Soft tissues are unremarkable. Impression: Unremarkable right hand. Reviewed, dictated and finalized at location M. Impression: Unremarkable right hand.
--- NOTE | ~2024-02-14 | XR_ITS ---
AP and oblique views of the bilateral SI joints. Clinical history: Joint pain FINDINGS: No fracture or dislocation. Visualized SI joints and hip joints are preserved. No erosive o r sclerotic change seen. No degenerative change. Soft tissues are unremarkable. IMPRESSION: Unremarkable exam. Reviewed, dictated and finalized at location . IMPRESSION: Unremarkable exam.
--- NOTE | ~2024-02-14 | XR_ITS ---
Right wrist Technique: PA and lateral views were obtained. Clinical History: Joint pain Findings: No acute fracture or dislocation is seen. Osseous alignment is anatomic. Joint spaces are p reserved. Soft tissues are unremarkable. Impression: Unremarkable right wrist radiographs. Reviewed, dictated and finalized at location M. Impression: Unremarkable right wrist radiographs.
== END 2024-02-14 09:57 | disposition home or self-care (01) ==
LOC: ANHIMG 10:00
PROVIDERS: PCP Physician Assistant; Visit Provider Nurse Practitioner
DX: M25.50 Pain in unspecified joint (principal)
CPT/HCPCS: 72202; 73100; 73120; 73600; 73620

== ENCOUNTER 2025-04-24 09:36 | Outpatient (CLI) | payer OTHER, SELFPAY ==
--- OUTSIDE RECORDS SUMMARY | 2024-05-23 16:00 | XMS_ITS ---
Author Organization [facility] Address [address] [address] Care Team Providers Care Yoke Presser Name Role Phone Jyoti Lucia Primary Care Provider [phone] Migration, Provider Unavailable Unavailable REASON FOR VISIT Multum To Medispan Conversion Encounter Medications Medication SIG (Take, Route, Frequency, Duration) Notes Start Date End Date Status Unithroid 50 MCG (0.05 MG) 1 TAB(S) ORALLY ONCE A DAY; Duration: 90 DAYS *Please review and pick correct strength-formulation from Medispan options. If intended option is not shown, discontinue and re-order from Quick Search* 02/07/2024 Active Encounters Encounter Location Date Provider Diagnosis [facility] [address] [address] 05/23/2024 Provider Migration Plan Of Treatment No Information Progress Notes * Danyelle LOZADADOB:1989 (35 yo F)Acc No.[id number]:05/23/2024 Patient: Danyelle CASTILLO Provider: Laurel calix Migration :1990 A ge:34 Y S ex:Female Date:05/23/2024 Phone: Address:[facility] [address] [id number] Pcp:Jyoti Lucia Subjective: * Chief Complaints: * 1 . Multum To Medispan Conversion Encounter. * Medical History: * Medications: T aking Unithroid 50 MCG (0.05 MG) TABLET 1 TAB(S) ORALLY ONCE A DAY , Notes to Pharmacist: *Please review and pick correct strength-formulation from Medispan options. If intended option is not shown, discontinue and re-order from Quick Search* Objective: * Vitals: Assessment: Plan: * Treatment: * Billing Information: * Visit Code: * Procedure Codes: * Electronic signature of Prov ider Migration on 04/24/2025 at 09:42 AM CDT Sign off status: Pending * Provider: Laurel calix Migration Date: 07/23/2023 Generated for Bhumi carmona/Rick/Chio on: 09:42 AM CDT
--- NOTE | ~2025-04-24 | US_ITS ---
EXAMINATION: US abdomen complete, 04/24/2025 9:55 CDT HISTORY: Leukopenia, unspecified type COMPARISON: None Technique: Mauricio-scale and color Doppler images were obtained. Findings: LIVER: No liver lesions are identified. . The liver measures 16.8 cm. GALLBLADDER/BILIARY: Unremarkable.No cholelithiais, wall thickening or pericholecystic fluid. No biliary dilatation. CBD 5.5 mm. [place] sign negative. PANCREAS: Unremarkable. SPLEEN: Spleen measures 11.3 cm.. KIDNEYS: Right Kidney: Right kidney 10 x 4.7 x 4.9 cm, normal. Left Kidney: Left kidney 9 x 5 x 4.7 cm, normal. AORTA: Normal caliber aorta. IVC: Unremarkable. FREE FLUID: None. Impression: No acute abnormality. Reviewed, dictated and finalized at location P. Impression: No acute abnormality.
--- OUTSIDE RECORDS SUMMARY | 2025-04-24 09:42 | XMS_ITS | Data Portability ---
Author Organization [facility], Main Office Address [address] [place] [address] Assessment No assessment recorded. Plan of Treatment Reminders Order Date Submit Date Provider Last Modified By Organization Details Last Modified Time Details Appointments None recorded. Lab iron + TIBC + ferritin, serum 2022 023 [employer] [facility], [address], [place], [place], [address], 3 06:55:05 CBC w/ auto diff 2022 023 [facility], [address], [place], [place], [address], 3 06:55:07 lipid panel, serum 2022 023 [employer]li [facility], [address], [place], [place], [address], 3 13:10:41 CBC w/ auto diff 2022 023 [facility], [address], [place], [place], [address], 3 13:10:42 HbA1c (hemoglobi n A1c), blood 2022 023 [employer] [facility], [address], [place], [place], [address], 3 13:10:41 Referral None recorded. Procedures None recorded. Surgeries None recorded. Imaging MRI, brain, w/wo contrast - no auth required 2022 023 [facility], [address] [place] [address] , [place], [address], 15:58:32 Medication Orders None recorded. Patient TargetsNo targets recorded. Patient InstructionsNo instructions recorded. Reason for Referral None Reported. Results Created Date Observation Date Name Description Value Unit Range Abnormal Flag Note LastModifiedBy Organization Detail LastModifiedTime 08/17/1908/24/2022 TSH+F REE T4 TSH 0.01 mIU/L low Refer ence Range > or = 20 Years 0.40- 4.50 Pregn ugo Range s First trime ster 0.26- 2.66 Secon d trime ster 0.55- 2.73 Third trime ster 0.43- 2.91 Not Available [facility] [address], [address], 08/24/2022 19:05:52 08/17/1908/24/2022 TSH+F REE T4 T4, free 2.1 NG/dL 0.8-1. 8 high Not Available [address], [address], 08/24/2022 19:05:52 08/17/19 23 08/24/2022 T3, FREE T3, free 6.1 pg/mL 2.3-4. 2 high Not Available [facility] [address], [address], 08/24/2022 19:05:52 08/17/19 23 08/24/2022 VITAM IN B12/F OLATE , SERUM PANEL vitamin B12 488 pg/mL 200-11 00 normal Not Available [facility] [address], [address], 08/24/2022 19:05:51 08/17/19 23 08/24/2022 VITAM IN B12/F OLATE , SERUM PANEL folate, serum >24.0 NG/mL normal Refer ence Range Low: <3.4 Borde rline : 3.4-5 .4 Danielle l: >5.4 Not Available [facility] [address] [place], [address], 08/24/2022 19:05:51 08/17/19 23 08/24/2022 THYRO ID PEROX IDASE ANTIB ODIES thyroid peroxidase antibodies 296 IU/mL <9 high Not Available [facility] [address] [place], [address], 08/24/2022 19:05:51 08/17/19 23 08/24/2022 TSI (THYR OID STIMU LATIN G IMMUN OGLOB ULIN) tsi <89 %_bas monae <140 Thyro id stimu latin g immun oglob ulins (TSI) can engag e the TSH medical records receptionist tors resul ting in hyper thyro idism in Grave s' disea se patie nts. TSI level s can be usefu l in monit oring the clini hi outco me of Grave s' disea se as well as asses sing the poten tial for hyper thyro idism from mater nal-f etal trans piotr. TSI resul ts great er than or equal to (>=) 140% of the Refer ence Contr ol are consi dered posit mona. NOTE: A serum TSH level great er than 350 micro -Inte rnati onal Units /mL can inter fere with the TSI bioas say and poten tiall y give false posit mona resul ts. Patie nts who are pregn ant and are suspe cted of havin g hyper thyro idism shoul d have both TSI and human Chori onic Gonad otrop in (hCG) tests measu red. A serum hCG level great er than 40,62 5 mIU/m L can inter fere with the TSI bioas say and may give false negat mona resul ts. In these patie nts it is recom job d that a secon d TSI be obtai travis when the hCG angy ntrat ion falls below 40,62 5 mIU/m L (usua lly after appro ximat mac 20-we eks gesta tion) . The ahmet tical perfo rmanc e artie cteri stics of this assay have been deter mined by [facility] . The modif icati ons have not been clear ed or appro po by the FDA. This assay has been valid ated pursu ant to the CLIA regul ation s and is used for clini hi purpo ses. Not Available [facility] [address], [address], 08/24/2022 19:05:50 08/17/19 23 08/24/2022 COMPR EHENS MONA METAB OLIC PANEL creatinine 0.70 mg/dL 0.50-0 .97 normal Not Available [facility] [address], [address], 08/24/2022 19:05:50 08/17/19 23 08/24/2022 COMPR EHENS MONA METAB OLIC PANEL glucose 80 mg/dL 65-139 normal Non-f astin g refer ence inter kim Not Available [facility] [address], [address], 08/24/2022 19:05:50 08/17/19 23 08/24/2022 COMPR EHENS MONA METAB OLIC PANEL urea nitrogen (BUN) 19 mg/dL 7-25 normal Not Available [address], [address], 08/24/2022 19:05:50 08/17/1908/24/2022 COMPR EHENS MONA METAB OLIC PANEL eGFR 119 mL/mi n/1.7 3m2 > or = 60 normal The eGFR is based on the CKD-E PI 2020 equat ion. To calcu late the new eGFR from a previ ous Creat inine or Cysta tin C resul t, go to https ://dave inman.corinne tabor.o sohan/sera srivastava s/ kdoqi /gfr% 5Fcal culat or Not Available [facility] [address] [place], [address], 08/24/2022 19:05:50 08/17/19 23 08/24/2022 COMPR EHENS MONA METAB OLIC PANEL BUN/creatini ne ratio not applic able (calc ) 6-22 Not Available [address], [address], 08/24/2022 19:05:50 08/17/19 23 08/24/2022 COMPR EHENS MONA METAB OLIC PANEL sodium 141 mmol/ L 135-14 6 normal Not Available [address], [address], 08/24/2022 19:05:50 08/17/19 23 08/24/2022 COMPR EHENS MONA METAB OLIC PANEL potassium 4.1 mmol/ L 3.5-5. 3 normal Not Available [address], [address], 08/24/2022 19:05:50 08/17/19 23 08/24/2022 COMPR EHENS MONA METAB OLIC PANEL chloride 108 mmol/ L 98-110 normal Not Available [address], [address], 08/24/2022 19:05:50 08/17/19 23 08/24/2022 COMPR EHENS MONA METAB OLIC PANEL carbon dioxide 25 mmol/ L 20-32 normal Not Available [address], [address], 08/24/2022 19:05:50 08/17/19 23 08/24/2022 COMPR EHENS MONA METAB OLIC PANEL calcium 9.0 mg/dL 8.6-10 .2 normal Not Available [address], [address], 08/24/2022 19:05:50 08/17/19 23 08/24/2022 COMPR EHENS MONA METAB OLIC PANEL protein, total 6.8 g/dL 6.1-8. 1 normal Not Available [address], [address], 08/24/2022 19:05:50 08/17/19 23 08/24/2022 COMPR EHENS MONA METAB OLIC PANEL albumin 4.2 g/dL 3.6-5. 1 normal Not Available [address], [address], 08/24/2022 19:05:50 08/17/19 23 08/24/2022 COMPR EHENS MONA METAB OLIC PANEL globulin 2.6 g/dL_ (calc ) 1.9-3. 7 normal Not Available [address], [address], 08/24/2022 19:05:50 08/17/19 23 08/24/2022 COMPR EHENS MONA METAB OLIC PANEL albumin/glob ulin ratio 1.6 (calc ) 1.0-2. 5 normal Not Available [address], [address], 08/24/2022 19:05:50 08/17/19 23 08/24/2022 COMPR EHENS MONA METAB OLIC PANEL bilirubin, total 0.4 mg/dL 0.2-1. 2 normal Not Available [address], [address], 08/24/2022 19:05:50 08/17/19 23 08/24/2022 COMPR EHENS MONA METAB OLIC PANEL alkaline phosphatase 64 U/L 31-125 normal Not Available [facility] [address], [address], 08/24/2022 19:05:50 08/17/19 23 08/24/2022 COMPR EHENS MONA METAB OLIC PANEL AST 36 U/L 10-30 high Not Available [address] [place], [address], 08/24/2022 19:05:50 08/17/19 23 08/24/2022 COMPR EHENS MONA METAB OLIC PANEL ALT 41 U/L 6-29 high Not Available [address], [address], 08/24/2022 19:05:50 10/21/19 23 10/25/2022 COMPR EHENS MONA METAB OLIC PANEL glucose 79 mg/dL 65-139 normal Non-f astin g refer ence inter kim Not Available [address], [address], 10/25/2022 20:15:08 10/21/19 23 10/25/2022 COMPR EHENS MONA METAB OLIC PANEL urea nitrogen (BUN) 20 mg/dL 7-25 normal Not Available [address], [address], 10/25/2022 20:15:08 10/21/19 23 10/25/2022 COMPR EHENS MONA METAB OLIC PANEL creatinine 0.82 mg/dL 0.50-0 .97 normal Not Available [address], [address], 10/25/2022 20:15:08 10/21/19 23 10/25/2022 COMPR EHENS MONA METAB OLIC PANEL eGFR 99 mL/mi n/1.7 3m2 > or = 60 normal The eGFR is based on the CKD-E PI 2020 equat ion. To calcu late the new eGFR from a previ ous Creat inine or Cysta douglas C resul t, go to https ://dave tabor.ruslan parry/sera ontiveros/ kdoqi /gfr% 5Fcal culat or Not Available [address], [address], 10/25/2022 20:15:08 10/21/19 23 10/25/2022 COMPR EHENS MONA METAB OLIC PANEL BUN/creatini ne ratio NOT APPLIC ABLE (calc ) 6-22 Not Available [address], [address], 10/25/2022 20:15:08 10/21/19 23 10/25/2022 COMPR EHENS MONA METAB OLIC PANEL sodium 137 mmol/ L 135-14 6 normal Not Available [address], [address], 10/25/2022 20:15:08 10/21/19 23 10/25/2022 COMPR EHENS MONA METAB OLIC PANEL potassium 4.1 mmol/ L 3.5-5. 3 normal Not Available [address], [address], 10/25/2022 20:15:08 10/21/19 23 10/25/2022 COMPR EHENS MONA METAB OLIC PANEL chloride 102 mmol/ L 98-110 normal Not Available [address], [address], 10/25/2022 20:15:08 10/21/19 23 10/25/2022 COMPR EHENS MONA METAB OLIC PANEL carbon dioxide 26 mmol/ L 20-32 normal Not Available [address], [address], 10/25/2022 20:15:08 10/21/19 23 10/25/2022 COMPR EHENS MONA METAB OLIC PANEL calcium 9.3 mg/dL 8.6-10 .2 normal Not Available [address], [address], 10/25/2022 20:15:08 10/21/19 23 10/25/2022 COMPR EHENS MONA METAB OLIC PANEL protein, total 7.2 g/dL 6.1-8. 1 normal Not Available [address], [address], 10/25/2022 20:15:08 10/21/19 23 10/25/2022 COMPR EHENS MONA METAB OLIC PANEL albumin 4.6 g/dL 3.6-5. 1 normal Not Available [address], [address], 10/25/2022 20:15:08 10/21/19 23 10/25/2022 COMPR EHENS MONA METAB OLIC PANEL globulin 2.6 g/dL_ (calc ) 1.9-3. 7 normal Not Available [address], [address], 10/25/2022 20:15:08 10/21/19 23 10/25/2022 COMPR EHENS MONA METAB OLIC PANEL albumin/glob ulin ratio 1.8 (calc ) 1.0-2. 5 normal Not Available [address], [address], 10/25/2022 20:15:08 10/21/19 23 10/25/2022 COMPR EHENS MONA METAB OLIC PANEL bilirubin, total 0.5 mg/dL 0.2-1. 2 normal Not Available [address], [address], 10/25/2022 20:15:08 10/21/19 23 10/25/2022 COMPR EHENS MONA METAB OLIC PANEL alkaline phosphatase 67 U/L 31-125 normal Not Available [facility] [place] [address] [place], [address], 10/25/2022 20:15:08 10/21/19 23 10/25/2022 COMPR EHENS MONA METAB OLIC PANEL AST 17 U/L 10-30 normal Not Available [address], [address], 10/25/2022 20:15:08 10/21/19 23 10/25/2022 COMPR EHENS MONA METAB OLIC PANEL ALT 13 U/L 6-29 normal Not Available [facility] [address] [place], [address], 10/25/2022 20:15:08 10/21/19 23 10/25/2022 IODIN E, SERUM /PLAS MA iodine, serum/plasma 50 mcg/L 52-109 low This test was devel oped and its ahmet tical perfo rmanc e artie cteri stics have been deter mined by [facility] [place]. It has not been clear ed or appro po by the U.S. Food and Drug Admin istra tion. This assay has been valid ated pursu ant to the CLIA regul ation s and is used for clini hi purpo ses. Not Available [facility] [address] [place], [address], 10/25/2022 20:15:08 10/21/19 23 10/25/2022 TSI (THYR OID STIMU LATIN G IMMUN OGLOB ULIN) tsi 200 %_bas monae <140 high Thyro id stimu latin g immun oglob ulins (TSI) can engag e the TSH medical records receptionist tors resul ting in hyper thyro idism in Grave s' disea se patie nts. TSI level s can be usefu l in monit oring the clini hi outco me of Grave s' disea se as well as asses sing the poten tial for hyper thyro idism from mater nal-f etal trans piotr. TSI resul ts great er than or equal to (>=) 140% of the Refer ence Contr ol are consi dered posit mona. NOTE: A serum TSH level great er than 350 micro -Inte rnati onal Units /mL can inter fere with the TSI bioas say and poten tiall y give false posit mona resul ts. Patie nts who are pregn ant and are suspe cted of havin g hyper thyro idism shoul d have both TSI and human Chori onic Gonad otrop in (hCG) tests measu red. A serum hCG level great er than 40,62 5 mIU/m L can inter fere with the TSI bioas say and may give false negat mona resul ts. In these patie nts it is recom job d that a secon d TSI be obtai travis when the hCG angy ntrat ion falls below 40,62 5 mIU/m L (usua lly after appro ximat mac 20-we eks gesta tion) . The ahmet tical perfo rmanc e artie cteri stics of this assay have been deter mined by [facility] [facility] . The modif icati ons have not been clear ed or appro po by the FDA. This assay has been valid ated pursu ant to the CLIA regul ation s and is used for clini hi purpo ses. Not Available [facility] [address], [address], 10/25/2022 20:15:09 10/21/19 23 10/25/2022 THYRO ID PEROX IDASE ANTIB ODIES thyroid peroxidase antibodies 516 IU/mL <9 high Not Available [facility] [address], [address], 10/25/2022 20:15:09 10/21/19 23 10/25/2022 VITAM IN B12/F OLATE , SERUM PANEL vitamin B12 446 pg/mL 200-11 00 normal Not Available [facility] [address], [address], 10/25/2022 20:15:10 10/21/19 23 10/25/2022 VITAM IN B12/F OLATE , SERUM PANEL folate, serum 16.5 NG/mL normal Refer ence Range Low: <3.4 Borde rline : 3.4-5 .4 Danielle l: >5.4 Not Available [facility] [address] [place], [address], 10/25/2022 20:15:10 10/21/19 23 10/25/2022 T3, FREE T3, free 2.3 pg/mL 2.3-4. 2 normal Not Available [address], [address], 10/25/2022 20:15:11 10/21/19 23 10/25/2022 TSH+F REE T4 TSH 3.67 mIU/L normal Refer ence Range > or = 20 Years 0.40- 4.50 Pregn ugo Range s First trime ster 0.26- 2.66 Secon d trime ster 0.55- 2.73 Third trime ster 0.43- 2.91 Not Available [address], [address], 10/25/2022 20:15:11 10/21/19 23 10/25/2022 TSH+F REE T4 T4, free 0.8 NG/dL 0.8-1. 8 normal Not Available [address], [address], 10/25/2022 20:15:11 01/13/20 23 01/13/2023 LIPID PANEL WITH RATIO S cholesterol, total 171 mg/dL <200 normal Not Available [address], [address], 01/13/2023 13:10:40 01/13/20 23 01/13/2023 LIPID PANEL WITH RATIO S HDL cholesterol 70 mg/dL > or = 50 normal Not Available [address], [address], 01/13/2023 13:10:40 01/13/20 23 01/13/2023 LIPID PANEL WITH RATIO S triglyceride s 55 mg/dL <150 normal Not Available [address], [address], 01/13/2023 13:10:40 01/13/20 23 01/13/2023 LIPID PANEL WITH RATIO S LDL-choleste rol 87 mg/dL _(hi c) normal Refer ence range : <100 Mally able range <100 mg/dL for prima ry preve ntion ; <70 mg/dL for patie nts with CHD or diabe tic patie nts with > or = 2 CHD risk facto rs. LDL-C is now calcu lated using the Sowmya n-Hop kins chalinou dipika n, which is a valid ated novel trevoro wilian bairdi karyna zuleyma r accur acy than the Fried neeru equat ion in the estim ation of LDL-C . Sowmya guerra SS et al. SAWYER. 2013; 310(1 9): 2061- 2068 (http ://ed ucati on.Qu GodTube. [employer]/f aq/FA Q164) Not Available [facility] [place] [address] [place], [address], 01/13/2023 13:10:40 01/13/20 23 01/13/2023 LIPID PANEL WITH RATIO S chol/HDLC ratio 2.4 (calc ) <5.0 normal Not Available [facility] [place] [address] [place], [address], 01/13/2023 13:10:40 01/13/20 23 01/13/2023 LIPID PANEL WITH RATIO S LDL/HDL ratio 1.2 (calc ) Below avera ge Risk: <2.34 [place] ge Risk: 2.35- 4.12 Moder ate Risk: 4.13- 5.56 High Risk: >5.57 Not Available [facility] [address] [address] , [place], [address], 01/13/2023 13:10:40 01/13/20 23 01/13/2023 LIPID PANEL WITH RATIO S non HDL cholesterol 101 mg/dL _(hi c) <130 normal For patie nts with diabe aliyah plus 1 major ASCVD risk facto r, treat ing to a non-H DL-C goal of <100 mg/dL (LDL- C of <70 mg/dL ) is consi simid a stephanie peshahram c optio n. Not Available [facility] [place] [address] [place], [address], 01/13/2023 13:10:40 01/13/2001/13/2023 HEMOG LOBIN A1C hemoglobin A1C 4.9 %_of_ total _HGB <5.7 normal For the purpo se of mica cardona for the prese nce of diabe aliyah: <5.7% Consi stent with the absen ce of diabe aliyah 5.7-6 .4% Consi stent with incre ased risk for diabe aliyah (pred iabet es) > or =6.5% Consi stent with diabe aliyah This assay resul t is consi stent with a decre ased risk of diabe aliyah. Curre ntly, no conse nsus exist s marybel troncoso use of hemog lobin A1c for diagn osis of diabe aliyah in child rachelle. Accor ding to Ameri can Diabe aliyah Assoc iatio n (ADA) guide lines , hemog lobin A1c <7.0% repre sents optim al contr ol in non-p regna nt diabe tic patie nts. Diffe rent metri cs may apply to speci fic patie nt popul ation s. Stand ards of Medic al Care in Diabe aliyah(A DA). Not Available [facility] [place] [address] [place], [address], 01/13/2023 13:10:41 01/13/20 23 01/13/2023 CBC (INCL UDES DIFF/ PLT) white blood cell count 2.9 thous and/u L 3.8-10 .8 low Not Available [facility] [place] [address] [place], [address], 01/13/2023 13:10:42 01/13/20 23 01/13/2023 CBC (INCL UDES DIFF/ PLT) red blood cell count 4.40 chucky on/uL 3.80-5 .10 normal Not Available [facility] [place] [address] [place], [address], 01/13/2023 13:10:42 01/13/20 23 01/13/2023 CBC (INCL UDES DIFF/ PLT) hemoglobin 13.1 g/dL 11.7-1 5.5 normal Not Available [address], [address], 01/13/2023 13:10:42 01/13/2001/13/2023 CBC (INCL UDES DIFF/ PLT) hematocrit 39.6 % 35.0-4 5.0 normal Not Available [address], [address], 01/13/2023 13:10:42 01/13/2001/13/2023 CBC (INCL UDES DIFF/ PLT) MCV 90.0 fL 80.0-1 00.0 normal Not Available [address], [address], 01/13/2023 13:10:42 01/13/20 23 01/13/2023 CBC (INCL UDES DIFF/ PLT) MCH 29.8 pg 27.0-3 3.0 normal Not Available [address], [address], 01/13/2023 13:10:42 01/13/2001/13/2023 CBC (INCL UDES DIFF/ PLT) MCHC 33.1 g/dL 32.0-3 6.0 normal Not Available [address], [address], 01/13/2023 13:10:42 01/13/2001/13/2023 CBC (INCL UDES DIFF/ PLT) RDW 12.9 % 11.0-1 5.0 normal Not Available [address], [address], 01/13/2023 13:10:42 01/13/2001/13/2023 CBC (INCL UDES DIFF/ PLT) platelet count 210 thous and/u L 140-40 0 normal Not Available [facility] [address] [address], [place], [address], 01/13/2023 13:10:42 01/13/20 23 01/13/2023 CBC (INCL UDES DIFF/ PLT) MPV 10.4 fL 7.5-12 .5 normal Not Available [address], [address], 01/13/2023 13:10:42 01/13/20 23 01/13/2023 CBC (INCL UDES DIFF/ PLT) absolute neutrophils 1302 cells /uL 1500-7 800 low Not Available [facility] [address], [address], 01/13/2023 13:10:42 01/13/20 23 01/13/2023 CBC (INCL UDES DIFF/ PLT) absolute lymphocytes 1212 cells /uL 850-39 00 normal Not Available [address], [address], 01/13/2023 13:10:42 01/13/20 23 01/13/2023 CBC (INCL UDES DIFF/ PLT) absolute monocytes 189 cells /uL 200-95 0 low Not Available [address], [address], 01/13/2023 13:10:42 01/13/20 23 01/13/2023 CBC (INCL UDES DIFF/ PLT) absolute eosinophils 168 cells /uL 15-500 normal Not Available [facility] [address], [address], 01/13/2023 13:10:42 01/13/20 23 01/13/2023 CBC (INCL UDES DIFF/ PLT) absolute basophils 29 cells /uL 0-200 normal Not Available [facility] [address], [address], 01/13/2023 13:10:42 01/13/20 23 01/13/2023 CBC (INCL UDES DIFF/ PLT) neutrophils 44.9 % normal Not Available [address], [address], 01/13/2023 13:10:42 01/13/20 23 01/13/2023 CBC (INCL UDES DIFF/ PLT) lymphocytes 41.8 % normal Not Available [address], [address], 01/13/2023 13:10:42 01/13/20 23 01/13/2023 CBC (INCL UDES DIFF/ PLT) monocytes 6.5 % normal Not Available [address], [address], 01/13/2023 13:10:42 01/13/20 23 01/13/2023 CBC (INCL UDES DIFF/ PLT) eosinophils 5.8 % normal Not Available [address], [address], 01/13/2023 13:10:42 01/13/20 23 01/13/2023 CBC (INCL UDES DIFF/ PLT) basophils 1.0 % normal Not Available [address], [address], 01/13/2023 13:10:42 01/13/2001/16/2023 COMPR EHENS MONA METAB OLIC PANEL glucose 79 mg/dL 65-99 normal Fasti ng refer ence inter kim Not Available [address], [address], 01/16/2023 19:56:38 01/13/20 23 01/16/2023 COMPR EHENS MONA METAB OLIC PANEL urea nitrogen (BUN) 21 mg/dL 7-25 normal Not Available [facility] [address], [address], 01/16/2023 19:56:38 01/13/20 23 01/16/2023 COMPR EHENS MONA METAB OLIC PANEL creatinine 0.71 mg/dL 0.50-0 .97 normal Not Available [address], [address], 01/16/2023 19:56:38 01/13/20 23 01/16/2023 COMPR EHENS MONA METAB OLIC PANEL eGFR 117 mL/mi n/1.7 3m2 > or = 60 normal The eGFR is based on the CKD-E PI 2020 equat ion. To calcu late the new eGFR from a previ ous Creat inine or Cysta tin C resul t, go to https ://dave inman.corinne tabor.ruslan parry/sera srivastava s/ kdoqi /gfr% 5Fcal culat or Not Available [address], [address], 01/16/2023 19:56:38 01/13/20 23 01/16/2023 COMPR EHENS MONA METAB OLIC PANEL BUN/creatini ne ratio NOT APPLIC ABLE (calc ) 6-22 Not Available [address], [address], 01/16/2023 19:56:38 01/13/20 23 01/16/2023 COMPR EHENS MONA METAB OLIC PANEL sodium 137 mmol/ L 135-14 6 normal Not Available [address], [address], 01/16/2023 19:56:38 01/13/20 23 01/16/2023 COMPR EHENS MONA METAB OLIC PANEL potassium 4.1 mmol/ L 3.5-5. 3 normal Not Available [address], [address], 01/16/2023 19:56:38 01/13/20 23 01/16/2023 COMPR EHENS MONA METAB OLIC PANEL chloride 103 mmol/ L 98-110 normal Not Available [address], [address], 01/16/2023 19:56:38 01/13/20 23 01/16/2023 COMPR EHENS MONA METAB OLIC PANEL carbon dioxide 26 mmol/ L 20-32 normal Not Available [address], [address], 01/16/2023 19:56:38 01/13/20 23 01/16/2023 COMPR EHENS MONA METAB OLIC PANEL calcium 9.5 mg/dL 8.6-10 .2 normal Not Available [address], [address], 01/16/2023 19:56:38 01/13/20 23 01/16/2023 COMPR EHENS MONA METAB OLIC PANEL protein, total 7.1 g/dL 6.1-8. 1 normal Not Available [address], [address], 01/16/2023 19:56:38 01/13/20 23 01/16/2023 COMPR EHENS MONA METAB OLIC PANEL albumin 4.7 g/dL 3.6-5. 1 normal Not Available [address], [address], 01/16/2023 19:56:38 01/13/20 23 01/16/2023 COMPR EHENS MONA METAB OLIC PANEL globulin 2.4 g/dL_ (calc ) 1.9-3. 7 normal Not Available [address], [address], 01/16/2023 19:56:38 01/13/20 23 01/16/2023 COMPR EHENS MONA METAB OLIC PANEL albumin/glob ulin ratio 2.0 (calc ) 1.0-2. 5 normal Not Available [address], [address], 01/16/2023 19:56:38 01/13/20 23 01/16/2023 COMPR EHENS MONA METAB OLIC PANEL bilirubin, total 0.6 mg/dL 0.2-1. 2 normal Not Available [address] [address] [place], [address], 01/16/2023 19:56:38 01/13/20 23 01/16/2023 COMPR EHENS MONA METAB OLIC PANEL alkaline phosphatase 59 U/L 31-125 normal Not Available [facility] [address] [address] [place], [address], 01/16/2023 19:56:38 01/13/20 23 01/16/2023 COMPR EHENS MONA METAB OLIC PANEL AST 19 U/L 10-30 normal Not Available [address] [address] [place], [address], 01/16/2023 19:56:38 01/13/20 23 01/16/2023 COMPR EHENS MONA METAB OLIC PANEL ALT 13 U/L 6-29 normal Not Available [address] [address] [place], [address], 01/16/2023 19:56:38 01/13/20 23 01/16/2023 TSI (THYR OID STIMU LATIN G IMMUN OGLOB ULIN) tsi 138 %_bas monae <140 Thyro id stimu latin g immun oglob ulins (TSI) can engag e the TSH medical records receptionist tors resul ting in hyper thyro idism in [facility]' disea se patie nts. TSI level s can be usefu l in monit oring the clini hi outco me of [facility] s' disea se as well as asses sing the poten tial for hyper thyro idism from mater nal-f etal trans piotr. TSI resul ts great er than or equal to (>=) 140% of the Refer ence Contr ol are consi dered posit mona. NOTE: A serum TSH level great er than 350 micro -Inte rnati onal Units /mL can inter fere with the TSI bioas say and poten tiall y give false posit mona resul ts. Patie nts who are pregn ant and are suspe cted of havin g hyper thyro idism shoul d have both TSI and human Chori onic Gonad otrop in (hCG) tests measu red. A serum hCG level great er than 40,62 5 mIU/m L can inter fere with the TSI bioas say and may give false negat mona resul ts. In these patie nts it is recom job d that a secon d TSI be obtai travis when the hCG angy ntrat ion falls below 40,62 5 mIU/m L (usua lly after appro ximat mac 20-we eks gesta tion) . The ahmet tical perfo rmanc e artie cteri stics of this assay have been deter mined by [facility] . The modif icati ons have not been clear ed or appro po by the FDA. This assay has been valid ated pursu ant to the CLIA regul ation s and is used for clini hi purpo ses. Not Available [facility] [address] [address] [place], [address], 01/16/2023 19:56:39 01/13/2001/16/2023 THYRO ID PEROX IDASE ANTIB ODIES thyroid peroxidase antibodies >900 IU/mL <9 high Not Available [facility] [address] [address] [place], [address], 01/16/2023 19:56:40 01/13/2001/16/2023 T3, FREE T3, free 2.8 pg/mL 2.3-4. 2 normal Not Available [facility] [address] [address] [place], [address], 01/16/2023 19:56:40 01/13/2001/16/2023 TSH+F REE T4 TSH 4.73 mIU/L high Refer ence Range > or = 20 Years 0.40- 4.50 Pregn ugo Range s First trime ster 0.26- 2.66 Secon d trime ster 0.55- 2.73 Third trime ster 0.43- 2.91 Not Available [address], [address], 01/16/2023 19:56:40 01/13/2001/16/2023 TSH+F REE T4 T4, free 0.8 NG/dL 0.8-1. 8 normal Not Available [address], [address], 01/16/2023 19:56:40 03/21/2003/28/2023 MAGNE SIUM magnesium 2.1 mg/dL 1.5-2. 5 normal Not Available [address], [address], 03/28/2023 18:28:30 03/21/20 23 03/28/2023 COMPR EHENS MONA METAB OLIC PANEL glucose 87 mg/dL 65-99 normal Fasti ng refer ence inter kim Not Available [address], [address], 03/28/2023 18:28:31 03/21/20 23 03/28/2023 COMPR EHENS MONA METAB OLIC PANEL urea nitrogen (BUN) 17 mg/dL 7-25 normal Not Available [address], [address], 03/28/2023 18:28:31 03/21/20 23 03/28/2023 COMPR EHENS MONA METAB OLIC PANEL creatinine 0.86 mg/dL 0.50-0 .97 normal Not Available [address], [address], 03/28/2023 18:28:31 03/21/20 23 03/28/2023 COMPR EHENS MONA METAB OLIC PANEL eGFR 93 mL/mi n/1.7 3m2 > or = 60 normal Not Available [address], [address], 03/28/2023 18:28:31 03/21/20 23 03/28/2023 COMPR EHENS MONA METAB OLIC PANEL BUN/creatini ne ratio SEE NOTE: (calc ) 6-22 Not Repor sarah: BUN and Creat inine are withi n refer ence range . Not Available [address], [address], 03/28/2023 18:28:31 03/21/20 23 03/28/2023 COMPR EHENS MONA METAB OLIC PANEL sodium 139 mmol/ L 135-14 6 normal Not Available [address], [address], 03/28/2023 18:28:31 03/21/20 23 03/28/2023 COMPR EHENS MONA METAB OLIC PANEL potassium 4.5 mmol/ L 3.5-5. 3 normal Not Available [address], [place], [address], 03/28/2023 18:28:31 03/21/20 23 03/28/2023 COMPR EHENS MONA METAB OLIC PANEL chloride 103 mmol/ L 98-110 normal Not Available [address], [address], 03/28/2023 18:28:31 03/21/20 23 03/28/2023 COMPR EHENS MONA METAB OLIC PANEL carbon dioxide 28 mmol/ L 20-32 normal Not Available [address], [address], 03/28/2023 18:28:31 03/21/20 23 03/28/2023 COMPR EHENS MONA METAB OLIC PANEL calcium 9.7 mg/dL 8.6-10 .2 normal Not Available [address], [address], 03/28/2023 18:28:31 03/21/20 23 03/28/2023 COMPR EHENS MONA METAB OLIC PANEL protein, total 7.4 g/dL 6.1-8. 1 normal Not Available [address], [address], 03/28/2023 18:28:31 03/21/20 23 03/28/2023 COMPR EHENS MONA METAB OLIC PANEL albumin 4.9 g/dL 3.6-5. 1 normal Not Available [address], [address], 03/28/2023 18:28:31 03/21/20 23 03/28/2023 COMPR EHENS MONA METAB OLIC PANEL globulin 2.5 g/dL_ (calc ) 1.9-3. 7 normal Not Available [address], [address], 03/28/2023 18:28:31 03/21/20 23 03/28/2023 COMPR EHENS MONA METAB OLIC PANEL albumin/glob ulin ratio 2.0 (calc ) 1.0-2. 5 normal Not Available [address], [address], 03/28/2023 18:28:31 03/21/20 23 03/28/2023 COMPR EHENS MONA METAB OLIC PANEL bilirubin, total 0.6 mg/dL 0.2-1. 2 normal Not Available [address], [address], 03/28/2023 18:28:31 03/21/20 23 03/28/2023 COMPR EHENS MONA METAB OLIC PANEL alkaline phosphatase 71 U/L 31-125 normal Not Available [address], [address], 03/28/2023 18:28:31 03/21/20 23 03/28/2023 COMPR EHENS OMNA METAB OLIC PANEL AST 17 U/L 10-30 normal Not Available [facility] [address] [place], [address], 03/28/2023 18:28:31 03/21/20 23 03/28/2023 COMPR EHENS MONA METAB OLIC PANEL ALT 13 U/L 6-29 normal Not Available [facility] [address] [place], [address], 03/28/2023 18:28:31 03/21/20 23 03/28/2023 IODIN E, SERUM /PLAS MA iodine, serum/plasma 70 mcg/L 52-109 This test was ramona escobedo and its ahmet tical perfo rmanc e artie cteri stics have been deter mined by [facility] [place], [place]. It has not been clear ed or appro po by the U.S. Food and Drug Admin istra tion. This assay has been valid ated pursu ant to the CLIA regul ation s and is used for clini hi purpo ses. Not Available [facility] [address] [address] [place], [address], 03/28/2023 18:28:32 03/21/20 23 03/28/2023 TSI (THYR OID STIMU LATIN G IMMUN OGLOB ULIN) tsi <89 %_bas monae <140 Thyro id stimu latin g immun oglob ulins (TSI) can engag e the TSH medical records receptionist tors resul ting in hyper thyro idism in [facility]' disea se patie nts. TSI level s can be usefu l in monit oring the clini hi outco me of Gra[facility]' disea se as well as asses sing the poten tial for hyper thyro idism from mater nal-f etal trans piotr. TSI resul ts great er than or equal to (>=) 140% of the Refer ence Contr ol are consi dered posit mona. NOTE: A serum TSH level great er than 350 micro -Inte rnati onal Units /mL can inter fere with the TSI bioas say and poten tiall y give false posit mona resul ts. Patie nts who are pregn ant and are suspe cted of havin g hyper thyro idism shoul d have both TSI and human Chori onic Gonad otrop in (hCG) tests measu red. A serum hCG level great er than 40,62 5 mIU/m L can inter fere with the TSI bioas say and may give false negat mona resul ts. In these patie nts it is recom job d that a secon d TSI be obtai travis when the hCG angy ntrat ion falls below 40,62 5 mIU/m L (usua lly after appro ximat mac 20-we eks gesta tion) . The ahmet tical perfo rmanc e artie cteri stics of this assay have been deter mined by [facility] . The modif icati ons have not been clear ed or appro po by the FDA. This assay has been valid ated pursu ant to the CLIA regul ation s and is used for clini hi purpo ses. Not Available [facility] [address] [place], [address], 03/28/2023 18:28:33 03/21/2003/28/2023 THYRO ID PEROX IDASE ANTIB ODIES thyroid peroxidase antibodies >900 IU/mL <9 high Not Available [facility] [address] [place], [address], 03/28/2023 18:28:34 03/21/20 23 03/28/2023 VITAM IN B12/F OLATE , SERUM PANEL vitamin B12 541 pg/mL 200-11 00 normal Not Available [facility] [address] [place], [address], 03/28/2023 18:28:35 03/21/2003/28/2023 VITAM IN B12/F OLATE , SERUM PANEL folate, serum 20.1 NG/mL normal Refer ence Range Low: <3.4 Borde rline : 3.4-5 .4 Danielle l: >5.4 Not Available [address], [address], 03/28/2023 18:28:35 03/21/2003/28/2023 T3, FREE T3, free 3.1 pg/mL 2.3-4. 2 normal Not Available [address], [address], 03/28/2023 18:28:35 03/21/2003/28/2023 TSH+F REE T4 TSH 4.48 mIU/L normal Refer ence Range > or = 20 Years 0.40- 4.50 Pregn ugo Range s First trime ster 0.26- 2.66 Secon d trime ster 0.55- 2.73 Third trime ster 0.43- 2.91 Not Available [address], [address], 03/28/2023 18:28:36 03/21/2003/28/2023 TSH+F REE T4 T4, free 1.1 NG/dL 0.8-1. 8 normal Not Available [address], [address], 03/28/2023 18:28:36 04/23/2004/24/2023 IRON, TIBC AND ANAND TIN PANEL iron, total 61 mcg/d L 40-190 normal Not Available [address], [address], 04/24/2023 06:55:05 04/23/2004/24/2023 IRON, TIBC AND ANAND TIN PANEL iron binding capacity 335 mcg/d L_(ca lc) 250-45 0 normal Not Available [address], [address], 04/24/2023 06:55:05 04/23/20 23 04/24/2023 IRON, TIBC AND ANAND TIN PANEL % saturation 18 %_(ca lc) 16-45 normal Not Available [address], [address], 04/24/2023 06:55:05 04/23/2004/24/2023 IRON, TIBC AND ANAND TIN PANEL ferritin 24 NG/mL 16-154 normal Not Available [address], [address], 04/24/2023 06:55:05 04/23/2004/24/2023 CBC (INCL UDES DIFF/ PLT) white blood cell count 3.5 thous and/u L 3.8-10 .8 low Not Available [address], [address], 04/24/2023 06:55:07 04/23/2004/24/2023 CBC (INCL UDES DIFF/ PLT) red blood cell count 4.30 chucky on/uL 3.80-5 .10 normal Not Available [address], [address], 04/24/2023 06:55:07 04/23/2004/24/2023 CBC (INCL UDES DIFF/ PLT) hemoglobin 13.0 g/dL 11.7-1 5.5 normal Not Available [address], [address], 04/24/2023 06:55:07 04/23/2004/24/2023 CBC (INCL UDES DIFF/ PLT) hematocrit 38.6 % 35.0-4 5.0 normal Not Available [address], [address], 04/24/2023 06:55:07 04/23/2004/24/2023 CBC (INCL UDES DIFF/ PLT) MCV 89.8 fL 80.0-1 00.0 normal Not Available [address], [address], 04/24/2023 06:55:07 04/23/2004/24/2023 CBC (INCL UDES DIFF/ PLT) MCH 30.2 pg 27.0-3 3.0 normal Not Available [address], [address], 04/24/2023 06:55:07 04/23/2004/24/2023 CBC (INCL UDES DIFF/ PLT) MCHC 33.7 g/dL 32.0-3 6.0 normal Not Available [address], [address], 04/24/2023 06:55:07 04/23/2004/24/2023 CBC (INCL UDES DIFF/ PLT) RDW 11.8 % 11.0-1 5.0 normal Not Available [address], [address], 04/24/2023 06:55:07 04/23/2004/24/2023 CBC (INCL UDES DIFF/ PLT) platelet count 213 thous and/u L 140-40 0 normal Not Available [address], [address], 04/24/2023 06:55:07 04/23/2004/24/2023 CBC (INCL UDES DIFF/ PLT) MPV 10.6 fL 7.5-12 .5 normal Not Available [address], [address], 04/24/2023 06:55:07 04/23/2004/24/2023 CBC (INCL UDES DIFF/ PLT) absolute neutrophils 1789 cells /uL 1500-7 800 normal Not Available [address], [address], 04/24/2023 06:55:07 04/23/2004/24/2023 CBC (INCL UDES DIFF/ PLT) absolute lymphocytes 1253 cells /uL 850-39 00 normal Not Available [address] [place], [address], 04/24/2023 06:55:07 04/23/2004/24/2023 CBC (INCL UDES DIFF/ PLT) absolute monocytes 298 cells /uL 200-95 0 normal Not Available [address], [address], 04/24/2023 06:55:07 04/23/2004/24/2023 CBC (INCL UDES DIFF/ PLT) absolute eosinophils 130 cells /uL 15-500 normal Not Available [address] [address] [place], [address], 04/24/2023 06:55:07 04/23/2004/24/2023 CBC (INCL UDES DIFF/ PLT) absolute basophils 32 cells /uL 0-200 normal Not Available [address], [address], 04/24/2023 06:55:07 04/23/2004/24/2023 CBC (INCL UDES DIFF/ PLT) neutrophils 51.1 % normal Not Available [address] [address] [place], [address], 04/24/2023 06:55:07 04/23/2004/24/2023 CBC (INCL UDES DIFF/ PLT) lymphocytes 35.8 % normal Not Available [facility] [address] [address] [place], [address], 04/24/2023 06:55:07 04/23/2004/24/2023 CBC (INCL UDES DIFF/ PLT) monocytes 8.5 % normal Not Available [address] [address] [place], [address], 04/24/2023 06:55:07 04/23/2004/24/2023 CBC (INCL UDES DIFF/ PLT) eosinophils 3.7 % normal Not Available [facility] [address] [place], [address], 04/24/2023 06:55:07 04/23/2004/24/2023 CBC (INCL UDES DIFF/ PLT) basophils 0.9 % normal Not Available [facility] [address] [place], [address], 04/24/2023 06:55:07 03/15/2001/24/2023 XR, hand No observ ation record ed. [email or web address] [facility] [address] [place], [address], 03/15/2023 15:48:46 05/16/2005/16/2023 MRI, brain , w/wo contr ast No observ ation record ed. [email or web address] [facility] [address] [place] [address], [place], [address], 05/29/2023 11:57:45 Result Notes None recorded. Problems Name Problem SNOMED Code Status Onset Date Resolution Date Notes Provider Name and Address Organization Details Recorded Time Karen thyroiditis 46083212 Active 2018 Not Available [facility] 3 02:43:55 Bacterial conjunctiviti s 612821353 Active 2021 Not Available [facility] 3 02:43:55 Hypothyroidis m in 026367943 Active 2021 Not Available [facility] 3 02:43:55 Autoimmune thyroiditis 67613192 Active 2022 Jyoti Pierre MD [address] [facility], [address] [address], [place], [address] , [facility] 3 21:19:56 Blepharospasm 60916779 Active 2022 SAAD Magallon [address] [facility], [address], [place], [address] , [facility] 3 10:17:53 Twitching eye 249438105 Active 2022 SAAD Magallon [address] [facility], [facility] [address], [place], [address] , [facility] [place] 3 10:18:02 Problem Notes None recorded. Medical Equipment None Reported. Allergies No known drug allergies Medications Name Sig Start Date Stop Date Status Note LastModified by Organization Details LastModified Time amoxicilli n 500 mg capsule TK ONE C PO TID TAT active Not Available Not Available No t Available prednisone 10 mg tablet 04/16 completed Not Available Not Available Not Available fluconazol e 150 mg tablet TAKE 1 TABLET BY MOUTH ONCE 09/03 completed Not Available Not Available Not Available metronidaz ole 0.75 % (37.5 mg/5 gram) vaginal gel INSERT ONE APPLICAT ORFUL VAGINALL Y AT BEDTIME FOR 5 NIGHTS 05/04 completed Not Available Not Available Not Available prednisone 20 mg tablet TK 1 T PO D active Not Available Not Available No t Available metronidaz ole 500 mg tablet TAKE 1 TABLET BY MOUTH TWICE DAILY 05/04 completed Not Available Not Available Not Available propranolo l 10 mg tablet TAKE 1 TABLET BY MOUTH THREE TIMES DAILY NEEDED active Not Available Not Available No t Available amoxicilli n 875 mg tablet TAKE 1 TABLET BY MOUTH EVERY 12 HOURS FOR 10 DAYS 05/04 completed Not Available Not Available Not Available nifedipine 10 mg capsule TAKE ONE CAPSULE BY MOUTH EVERY 6 HOURS NEEDED 09/03 completed Not Available Not Available Not Available benzonatat e 100 mg capsule TAKE 1 CAPSULE BY MOUTH EVERY 8 HOURS NEEDED FOR COUGH AND CONGESTI ON 05/04 completed Not Available Not Available Not Available cephalexin 500 mg capsule 04/16 completed Not Available Not Available Not Available esomeprazo le magnesium 40 mg capsule,de layed release TAKE 1 CAPSULE BY MOUTH EVERY DAY 05/04 completed Not Available Not Available Not Available tobramycin 0.3 % eye drops INSTILL 1 DROP INTO AFFECTED EYE(S) BY OPHTHALM IC ROUTE EVERY 4 HOURS while awake x 5-7 days 05/04 completed Not Available Not Available Not Available nystatin 100,000 unit/gram topical cream APPLY TOPICALL Y TO NIPPLES TWO-THRE E TIMES DAILY. WASH OFF BEFORE FEEDING active Not Available Not Available No t Available methimazol e 5 mg tablet TK 1 T PO TID active Not Available Not Available No t Available Unithroid 25 mcg tablet Take 1 tablet every day by oral route for 30 days. active Not Available Not Available No t Available ibuprofen 600 mg tablet TAKE 1 TABLET BY MOUTH EVERY 6 HOURS NEEDED FOR CRAMPS 09/03 completed Not Available Not Available Not Available methylpred nisolone 4 mg tablets in a dose pack FPD 06/28 completed Not Available Not Available Not Available cefdinir 300 mg capsule TAKE 1 CAPSULE BY MOUTH EVERY 12 HOURS UNTIL ALL TAKEN 05/04 completed Not Available Not Available Not Available sertraline 50 mg tablet 04/16 completed Not Available Not Available Not Available Procardia 04/05 completed NEEDED Not Available Not Available Not Available 2021 active Not Available Not Available Not Avai lable doxylamine 10 mg-pyridox ine (vit B6) 10 mg tablet,del ayed release TAKE 1-2 TABLETS BY MOUTH EVERY NIGHT AT BEDTIME 05/04 completed Not Available Not Available Not Available FeroSul 325 mg (65 mg iron) tablet TAKE 1 TABLET BY MOUTH DAILY 09/03 completed Not Available Not Available Not Available Tirosint 13 mcg capsule TK ONE C PO QAM 06/28 completed Not Available Not Available Not Available Xiidra 5 % eye drops in a dropperett e Instill by ophthalm ic route for 30 days. 04/05 completed Not Available Not Available Not Available Bonjesta 20 mg-20 mg tablet,imm ediate and delay release 06/28 completed Not Available Not Available Not Available ID NOW COVID-19 Test Kit TEST DIRECTED TODAY 05/07 completed Not Available Not Available Not Available [facility] COVID-19 Antigen Home Test kit 09/03 completed Not Available Not Available Not Available Vitals Date Recorded Body mass index (BMI) Body height Oxygen saturation Oxygen saturation in Arterial blood by Pulse oximetry Heart rate Respiratory rate Body temperature Body weight Systolic And Diastolic Provider Name and Address Organization Details Last Updated DateTime 3 25 kg/m2 167.64 cm 97 % 97 % 100 /min 18 /min 97.7 [degF] 97644.8 2 g 126/74 mm[Hg] Not Available [facility] 3 02:41:10 Date Recorded Systolic And Diastolic Provider Name and Address Organization Details Last Updated DateTime 01/04/2023 110/70 mm[Hg] SAAD Magallon [address] [facility], [facility] [address], [place], [address], [facility] 01/04/2023 10:14:26 Date Recorded Body height Body mass index (BMI) Body weight Heart rate Oxygen saturation Oxygen saturation in Arterial blood by Pulse oximetry Body temperature Systolic And Diastolic Provider Name and Address Organization Details Last Updated DateTime 3 167.64 cm 24.2 kg/m2 39604.8 6 g 65 /min 95 % 95 % 97.8 [degF] 116/64 mm[Hg] Danyelle Meier RN [facility] 3 09:58:35 Date Recorded Body height Body mass index (BMI) Body weight Body temperature Respiratory rate Heart rate Systolic And Diastolic Provider Name and Address Organization Details Last Updated DateTime 3 167.64 cm 23.7 kg/m2 55055.6 4 g 97.7 [degF] 12 /min 67 /min 108/67 mm[Hg] Daly Gee RN [facility] 3 10:44:22 Date Recorded Body height Body temperature Body mass index (BMI) Body weight Respiratory rate Oxygen saturation Oxygen saturation in Arterial blood by Pulse oximetry Heart rate Systolic And Diastolic Provider Name and Address Organization Details Last Updated DateTime 3 167.64 cm 97.7 [degF] 23.7 kg/m2 71756.0 8 g 16 /min 98 % 98 % 70 /min 120/80 mm[Hg] KUSHAL Monterroso [facility] 3 10:02:02 Date Recorded Body mass index (BMI) Body height Body weight Provider Name and Address Organization Details Last Updated DateTime 05/07/2022 26.1 kg/m2 167.64 cm 58916.96 g Not Available [facility] 09/05/2022 02:41:13 Social History Question Answer Notes LastModified by Organizat ion Details LastModified Time Tobacco Smoking Status Never Smoker Not Available [facility] 09/05/2022 02:34:38 What Is Your Level Of Caffeine Consumption? Moderate [id number] Information not available 09/05/2022 How Much Tobacco Do You Chew? None [id number] Information not available 09/05/2022 In The 14 Days Before Symptom Onset, Have You Had Close Contact With A Laboratory-confirm ed COVID-19 While That Case Was Ill? No [id number] Information not available 09/05/2022 In The 14 Days Before Symptom Onset, Have You Had Close Contact With A Person Who Is Under Investigation For COVID-19 While That Person Was Ill? No [id number] Information not available 09/05/2022 What Type Of Diet Are You Following? GLUTENFREE [id number] Information not available 09/05/2022 Which Illicit Or Recreational Drugs Have You Used? None [id number] Information not available 09/05/2022 Have There Been Any Changes To Your Family Or Social Situation? No [email or web address] Information no t available 01/03/2023 Are There Any Guns Present In Your Home? Yes [id number] Information not available 09/05/2022 Do You Use Insect Repellent Routinely? No [email or web address] Information not available 01/03/2023 What Is Your Relationship Status? [id number] Information not available 09/05/2022 Do You Use Your Seat Belt Or Car Seat Routinely? Yes [email or web address] Information not available 01/03/2023 How Much Tobacco Do You Smoke? No [id number] Information not available 09/05/2022 Do You Use Sunscreen Routinely? Yes [email or web address] Information not available 01/03/2023 Have You Recently Traveled Abroad? No [id number] Information not available 09/05/2022 Do You Have Any Dietary Restrictions? No [email or web address] Information not available 01/03/2023 Sex: Female Functional Status Question Answer Note LastModified by Organizat ion Details LastModified Time Do you use any illicit or recreational drugs? No [email or web address] Information not available 01/03/2023 Do you or have you ever used any other forms of tobacco or nicotine? No Information not available 01/03/2023 What is your level of alcohol consumption? Occasional [id number] Information not available 09/05/2022 Do you or have you ever used smokeless tobacco? Never used smokeless tobacco [id number].[id number] Information not available 09/05/2022 Are you currently employed? 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 Never used electronic cigarettes MIGRATION.[id number] Information not available 09/05/2022 What is your exercise level? Moderate [id number].[id number] 4431 Information not available 09/05/2022 Mental Status None recorded. Family History Relationship Description Onset Age of this Age Resolved Age Notes LastModified by Organization Details LastModified Time Father Hypothyroidi sm [id number] Not available 09/05/2022 02:37:23 Father Hypertensive disorder [id number].627 [id number] Not available 09/05/2022 02:37:23 Mother Hypothyroidi sm [id number] [id number] Not available 09/05/2022 02:37:23 Mother Hypertensive disorder [id number] Not available 09/05/2022 02:37:23 Maternal Grandmother Hyperthyroid ism [id number].102 [id number] Not available 09/05/2022 02:37:23 Medical History Condition Response NO SIGNIFICANT PAST MEDICAL HISTORY DIZZINESS Y Gynecological History Statement/Question Response How many live births 3 Date of Last Pap 06/07/2020 Sexually Active? Y Obstetrics History GPAL:G 4 P 0 0 0 4 Type Value Living 4 Total 4 Past Encounters Encounter ID Performer Location Encounter Start Date Encounter Closed Date Diagnosis/Indication Diagnosis SNOMED-CT Code Diagnosis ICD10 Code Diagnosis IMO Codes Diagnosis Note [id number] Jyoti Pierre MD [facility] [address] [place] [address] 09/23/2020 00:00:00 09/23/2020 16:34:05 [id number] SAAD Magallon [facility] [address] [place] [address] 12/12/2020 00:00:00 12/31/2020 23:26:06 [id number] SAAD Magallon [facility] [address] [place] [address] 01/13/2021 00:00:00 01/29/2021 23:38:57 [id number] Jyoti Pierre MD [facility] [address] [place] [address] 01/23/2021 00:00:00 01/23/2021 10:10:42 [id number] Jyoti Pierre MD [facility] [address] [place], [place] [address] 08/18/2021 00:00:00 08/18/2021 11:57:25 [id number] Jyoti Pierre MD [facility] [address] [place], [place] [address] 05/07/2022 00:00:00 05/07/2022 13:57:25 [id number] Jyoti Pierre MD [facility] [address] [place] [address] 09/03/2022 00:00:00 09/03/2022 21:17:58 [id number] SAAD Magallon [facility] [address] [place] [address] 01/04/2023 09:52:46 01/04/2023 10:19:56 Adult health examination 461285113 Z00.00 well exam completed. labs ordered to accompany [facility]'s orders Cholesterol screening 27 0895081 Z13.220 Diabetes m ellitus screening 761509479 Z13.1 Karen thyroiditis 21 756423 E06.3 followed by Endocrine. Not on Rx at this time. labs planned next week. state [id number] 1 Z39.2 6 months. doing well, busy household with 4 kids under 6. [id number] Jyoti Pierre MD [facility] [place] [address] [place], [place] [address] 04/05/2023 10:37:56 04/05/2023 11:44:25 Autoimmune thyroiditis [id number] E06.3 TSH and FT4 overall in range with markedly high TPO antibodies - encouraged further AIP diet to help with TPO reduction. She is able to breastfeed and essentiall y at prebaby weight so no clinical indication to start on thyroid replacemen t. She is aware once done with breastfeed ing can restart on thyroid supplement similar to actalin by Dr. Vega Fields that contains, iodine, magnesium, manganese, carnitine and other elements to help maintain endogenous thyroid function and help to reduce swelling to take in meantime to help reduce time frame to burn out and to help with fatigue, hair thinning etc. Spent up to 15 minutes preparing to see the patient (eg, review of tests), obtaining and/or reviewing separately obtained history, performing a medically appropriat e examinatio n and evaluation , counseling and educating the patient, ordering medication s, tests, along with documentin g clinical informatio n in the electronic health record, independen tly interpreti ng results and communicat ing results to the patient. Patient can be followed by PCP - she/he is aware of my resignatio n and last day of April 19. If needed his/her PCP can refer patient to another endocrinol ogist in the area. All questions /concerns answered and refills necessary at visit today. [id number] SAAD Magallon [facility] [place] [address] [place] [address] 04/22/2023 09:56:00 04/22/2023 10:29:54 Blepharospasm [id number] G24.5 6 months of frequent eye twitching. she has decrease caffeine to nearly zero with mild improvemen t , and rest/sleep has also been tried. Would suggest getting MRI brain w/wo contrast for continued eye twitching to r/o other more structural etiology. Twitching eye [id number] H55.89 check iron studies and CBC to r/o iron deficiency on chance that is contributi ng. Health Concerns Section Related Observation LastModified by Organization Francisco J vines LastModified Time None Recorded Concern Status LastModified by Organization Details LastModified Time None Recorded Advance Directives Directive None Recorded Payers Insurance Date Sequence Insurance Name Policy Number Policy Brown Covered Member ID Brown Member ID Guarantor Name 06/11/2024 [facility] Danyellejefferson Lozada SELF SELF Danyelle Lozada 05/06/2023 1 [facility] Serjio Lozada [id number] Danyelle Lozada Notes Date Note Type Note Provider Name and Address Organization Details Recorded Time 01/04/2023 text/html Generic HPI TemplateReported by Patient6 months post . has karen's thyroiditis that she sees dr pierre for management. wellness, EYAD 2020 SAAD Magallon [address] [facility], [place] [address], [place], [address], [employer] 01/04/2023 10:30:14 04/05/2023 text/html ROS as noted in the HPI 33 yo female comes in for follow up in management of autoimmune thyroiditis. last seen in Aug at that time we continued thyroid support and xidriis for dry eyes. She is now close to 1 year -daughter is now 9 months. Patient has lost and maintained 14 pound weight loss. She is feeling good and with no concerns. labs from 03/21/23:TSH of 4.48 uIU/mlFT4 of 1.1 ng/dLFT3 of 3.1 pg/mlB12/folate normalTPO >900 IU/mlTSI negiodine 70 normalglucose 87 mg/dLCr normalLFT normalmag 2.1 mg/dL Jyoti Pierre MD [address] [facility], [place] [address], [place], [address], [employer] 04/05/2023 12:31:20 04/22/2023 text/html Generic HPI TemplateReported by PatientHPIFor location, (l eye lid). For quality, (twitching). For severity, (worse). For duration, (daily). For onset/timing, (6 months). For context, (she is stressed).eye dr talked about botox. SAAD Magallon [address] [facility], [facility] [address], [place], [address], [employer] [facility] [place] 05/05/2023 23:02:45 OBGyn Episode No OBEpisode recorded.
--- OUTSIDE RECORDS SUMMARY | 2025-04-24 09:42 | XMS_ITS | Patient Health Record ---
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 Name Role Phone Jyoti Lucia Primary Care Provider [phone] Migration, Provider Unavailable Unavailable Allergies No Known Allergies Results Component Value Reference Range Flag Notes TESTOSTERONE, FREE (DIALYSIS ) AND TOTAL,MS (47141) Reviewed date:12/13/2024 09:07:20 PM Interpretation: Performing Lab:Te [facility]-IaqLpxvvx[address] [address], [address] CenterTrtgwetwmzRI[address] Esa Claros MD,PhD Notes/Report: TESTOSTERONE, TOTAL, MS 10 2-45 ng/dL For additional information, please refer to https://education.Flooved/faq/RMF942 (This link is being provided for informational/educational purposes only.) (Note) This test was developed and its analytical performance characteristics have been determined by [employer]. It has not been cleared or approved by the FDA. This assay has been validated pursuant to the CLIA regulations and is used for clinical purposes. TESTOSTERONE, FREE 1 0.1-6.4 pg/mL (Note) This test was developed and its analytical performance characteristics have been determined by [employer]. It has not been cleared or approved by the FDA. This assay has been validated pursuant to the CLIA regulations and is used for clinical purposes. [facility] med fusion [address] [address],[address] [facility] [address] Esa Claros MD, PhD FERRITIN (422) Reviewed date:12/07/2024 09:29:33 AM Interpretation: Performing Lab:SANDRINE [facility]-Puxrij88428 Yumiko ColemanaKS[address] Rah Amaya MD Notes/Report: FERRITIN 7 16-154 ng/mL L LH (615) Reviewed date:12/07/2024 09:29:07 AM Interpretation: Performing Lab:Steve DELUCA [place] Rah Amaya MD Notes/Report: LH 0.7 N Reference Range Follicular Phase 1.9-12.5 Mid-Cycle Peak 8.7-76.3 Luteal Phase 0.5-16.9 Postmenopausal 10.0-54.7 FSH (470) Reviewed date:12/07/2024 09:29:27 AM Interpretation: Performing Lab:Steve DELUCA [place] Rah Amaya MD Notes/Report: FSH 2.4 N Reference Range Follicular Phase 2.5-10.2 Mid-cycle Peak 3.1-17.7 Luteal Phase 1.5- 9.1 Postmenopausal 23.0-116.3 VITAMIN B12/FOLATE, SERUM PA ANNEL (7065) Reviewed date:12/07/2024 09:28:50 AM Interpretation: Performing Lab:Steve DELUCA [place] Rah Amaya MD Notes/Report: VITAMIN B12 318 370-0431 pg/mL N Please Note: Although the reference range for vitamin B12 is 200-1100 pg/mL, it has been reported that between 5 and 10% of patients with values between 200 and 400 pg/mL may experience neuropsychiatric and hematologic abnormalities due to occult B12 deficiency; less than 1% of patients with values above 400 pg/mL will have symptoms. FOLATE, SERUM 5.8 N Reference Range Low: <3.4 Borderline: 3.4-5.4 Normal: >5.4 PROGESTERONE (745) Reviewed date:12/07/2024 09:29:01 AM Interpretation: Performing Lab:Steve DELUCA [place] Rah Amaya MD Notes/Report: PROGESTERONE 3.4 N Reference Ranges Female Follicular Phase < 1.0 Luteal Phase 2.6-21.5 Post menopausal < 0.5 1st Trimester 4.1-34.0 2nd Trimester 24.0-76.0 3rd Trimester 52.0-302.0 ESTRADIOL (4021) Reviewed date:12/07/2024 09:28:55 AM Interpretation: Performing Lab:Steve DELUCA-Kttwtj31149 Rachell Zhang, AsjkmaNS[address] Rah Amaya MD Notes/Report: ESTRADIOL 63 N Reference Range Follicular Phase: 19-144 Mid-Cycle: 64-357 Luteal Phase: 56-214 Postmenopausal: < or = 31 Reference range established on post-pubertal patient population. No pre-pubertal reference range established using this assay. For any patients for whom low Estradiol levels are anticipated (e.g. males, pre-pubertal children and hypogonadal/post-menopausa l females), the [facility] Estradiol, Ultrasensitive, LCMSMS assay is recommended (order code 54140). Please note: patients being treated with the drug fulvestrant (Faslodex(R)) have demonstrated significant interference in immunoassay methods for estradiol measurement. The cross reactivity could lead to falsely elevated estradiol test results leading to an inappropriate clinical assessment of estrogen status. [facility] order code 34849-Pyjucfvjr, Ultrasensitive LC/MS/MS demonstrates negligible cross reactivity with fulvestrant. .CBC (INCLUDES DIFF/PLT) (63 99) Reviewed date:12/07/2024 09:29:41 AM Interpretation: Performing Lab:Steve DELUCA-Tknmhk42649 Rachell Zhang, VirrxfLE[address] Rah Amaya MD Notes/Report: WHITE BLOOD CELL COUNT 5.4 3.8-10.8 Thousand/uL N RED BLOOD CELL COUNT 4.31 3.80-5.10 Million/uL N HEMOGLOBIN 12.9 11.7-15.5 g/dL N HEMATOCRIT 40.3 35.0-45.0 % N MCV 93.5 80.0-100.0 fL N MCH 29.9 27.0-33.0 pg N MCHC 32.0 32.0-36.0 g/dL N For adults, a slight decrease in the calculated MCHC value (in the range of 30 to 32 g/dL) is most likely not clinically significant; however, it should be interpreted with caution in correlation with other red cell parameters and the patient's clinical condition. RDW 12.3 11.0-15.0 % N PLATELET COUNT 221 140-400 Thousand/uL N MPV 10.3 7.5-12.5 fL N ABSOLUTE NEUTROPHILS 3672 5400-0132 cells/uL N ABSOLUTE LYMPHOCYTES 9189 070-4911 cells/uL N ABSOLUTE MONOCYTES 351 200-950 cells/uL N ABSOLUTE EOSINOPHILS 38 15-500 cells/uL N ABSOLUTE BASOPHILS 22 0-200 cells/uL N NEUTROPHILS 68 N LYMPHOCYTES 24.4 N MONOCYTES 6.5 N EOSINOPHILS 0.7 N BASOPHILS 0.4 N IRON AND TOTAL IRON BINDING CAPACITY (7573) Reviewed date:12/07/2024 09:29:54 AM Interpretation: Performing Lab:SANDRINE [facility]-Bubozm02577 Rachell Zhang, CekymeCH[address] Rah Amaya MD Notes/Report: IRON, TOTAL 67 40-190 mcg/dL N IRON BINDING CAPACITY 381 250-450 mc g/dL (calc) N % SATURATION 18 16-45 % (calc) N .COMPREHENSIVE METABOLIC VERA EL (43941) [facility] Reviewed date:12/07/2024 09:29:48 AM Interpretation: Performing Lab:SANDRINE Yappn Fozia-Ngitep73050 Rachell Zhang, EsddnhEJ[address] Rah Amaya MD Notes/Report: GLUCOSE 95 65-99 mg/dL N Fasting reference interval UREA NITROGEN (BUN) 13 7-25 mg/dL N CREATININE 0.70 0.50-0.97 mg/dL N EGFR 118 > OR = 60 mL/min/1.73m2 N BUN/CREATININE RATIO SEE NOTE: 6-22 (calc) Not Reported: BUN and Creatinine are within reference range. SODIUM 136 135-146 mmol/L N POTASSIUM 4.4 3.5-5.3 mmol/L N CHLORIDE 103 98-110 mmol/L N CARBON DIOXIDE 23 20-32 mmol/L N CALCIUM 8.9 8.6-10.2 mg/dL N PROTEIN, TOTAL 6.9 6.1-8.1 g/dL N ALBUMIN 4.5 3.6-5.1 g/dL N GLOBULIN 2.4 1.9-3.7 g/dL (calc) N ALBUMIN/GLOBULIN RATIO 1.9 1.0-2.5 (calc) N BILIRUBIN, TOTAL 0.5 0.2-1.2 mg/dL N ALKALINE PHOSPHATASE 50 31-125 U/L N AST 16 10-30 U/L N ALT 11 6-29 U/L N .VITAMIN D,25-OH,TOTAL,IA (1 7312) Reviewed date:11/19/2024 09:54:12 AM Interpretation: Performing Lab:Steve DELUCA-Dfbkbk58347 Rachell Zhang, SqgtyfYU[address] Rah Amaya MD Notes/Report: FASTING: YES FASTING:YES VITAMIN D,25-OH,TOTAL,IA 38 30-100 ng/mL N Vitamin D Status 25-OH Vitamin D: Deficiency: <20 ng/mL Insufficiency: 20 - 29 ng/mL Optimal: > or = 30 ng/mL For 25-OH Vitamin D testing on patients on D2-supplementation and patients for whom quantitation of D2 and D3 fractions is required, the [facility](TM) 25-OH VIT D, (D2,D3), LC/MS/MS is recommended: order code 07812 (patients >2yrs). See Note 1 Note 1 For additional information, please refer to http://education.[employer]/faq/BRS073 (This link is being provided for informational/ educational purposes only.) T3, FREE (28597) Reviewed date:11/19/2024 09:54:12 AM Interpretation: Performing Lab:Steve DELUCA-Wpkvhw41191 Rachell Zhang, DvwdwmQU[address] Rah Amaya MD Notes/Report: FASTING: YES FASTING:YES T3, FREE 2.9 2.3-4.2 pg/mL N TSH (899) Reviewed date:11/19/2024 09:54:12 AM Interpretation: Performing Lab:Steve DELUCA-Zmuyjs80415 Rachell Zhang, VbvyuwVW[address] Rah Amaya MD Notes/Report: FASTING: YES FASTING:YES TSH 2.32 N Reference Range > or = 20 Years 0.40-4.50 Ranges First trimester 0.26-2.66 Second trimester 0.55-2.73 Third trimester 0.43-2.91 T4, FREE (866) Reviewed date:11/19/2024 09:54:12 AM Interpretation: Performing Lab:Steve DELUCA-Fcprnq45394 Rachell Zhang, BgmyvoLG[address] Rah Amaya MD Notes/Report: FASTING: YES FASTING:YES T4, FREE 1.2 0.8-1.8 ng/dL N VITAMIN B12/FOLATE, SERUM PA ANNEL (3382) Reviewed date:11/19/2024 09:54:12 AM Interpretation: Performing Lab:Steve DELUCAa1Van Zhang, ZvedmxKT[address] Rah Amaya MD Notes/Report: FASTING: YES FASTING:YES VITAMIN B12 411 508-8123 pg/mL N FOLATE, SERUM 14.2 N Reference Range Low: <3.4 Borderline: 3.4-5.4 Normal: >5.4 ALEXI SCREEN, IFA, W/REFL TITE R AND PATTERN (249) Reviewed date:11/19/2024 09:54:11 AM Interpretation: Performing Lab:Steve DELUCAa1Van Zhang, YzqygtHZ[address] Rah Amaya MD Notes/Report: FASTING:YES FASTING: YES ALEXI SCREEN, IFA NEGATIVE NEGATIVE N ALEXI IFA is a first line screen for detecting the presence of up to approximately 150 autoantibodies in various autoimmune diseases. A negative ALEXI IFA result suggests an ALEXI-associated autoimmune disease is not present at this time, but is not definitive. If there is high clinical suspicion for Sjogren's syndrome, testing for anti-SS-A/Ro antibody should be considered. Anti-Dorinda-1 antibody should be considered for clinically suspected inflammatory myopathies. AC-0: Negative International Consensus on ALEXI Patterns (https://doi.org/10.1515/c trr-9696-3761) For additional information, please refer to http://education.Kur[employer] Technologies/faq/CEH883 (This link is being provided for informational/ educational purposes only.) CYCLIC CITRULLINATED PEPTIDE (CCP) AB (IGG) (98679) Reviewed date:11/19/2024 09:54:11 AM Interpretation: Performing Lab:Steve DELUCAa10101 Jewel ColemanJtvpppCN[address] Rah Amaya MD Notes/Report: FASTING: YES FASTING:YES CYCLIC CITRULLINATED PEPTIDE (CCP) AB (IGG) <16 N Reference Range Negative: <20 Weak Positive: 20-39 Moderate Positive: 40-59 Strong Positive: >59 RHEUMATOID FACTOR (4418) Reviewed date:11/19/2024 09:54:11 AM Interpretation: Performing Lab:Steve DELUCA-Moraima Zhang, GnljcoWW[address] Rah Amaya MD Notes/Report: FASTING:YES FASTING: YES RHEUMATOID FACTOR 22 <14 IU/mL H C-REACTIVE PROTEIN (4420) Reviewed date:11/19/2024 09:54:11 AM Interpretation: Performing Lab:Steve DELUCA-Moraima Zhang, PzwlhxPJ[address] Rah Amaya MD Notes/Report: FASTING:YES FASTING: YES C-REACTIVE PROTEIN <3.0 <8.0 mg/L N SED RATE BY MODIFIED ROX DOMINIQUE (809) Reviewed date:11/19/2024 09:54:11 AM Interpretation: Performing Lab:Steve DELUCA-Moraima Zhang, LlpttjHI[address] Rah Amaya MD Notes/Report: FASTING:YES FASTING: YES SED RATE BY MODIFIED MAEVE 6 < OR = 20 mm/h N .CBC (INCLUDES DIFF/PLT) (63 99) Reviewed date:11/19/2024 09:54:11 AM Interpretation: Performing Lab:Steve DELUCA Len[place]aKS[address] Rah Amaya MD Notes/Report: FASTING:YES FASTING: YES WHITE BLOOD CELL COUNT 2.8 3.8-10.8 Thousand/uL L RED BLOOD CELL COUNT 4.29 3.80-5.10 Million/uL N HEMOGLOBIN 12.8 11.7-15.5 g/dL N HEMATOCRIT 40.2 35.0-45.0 % N MCV 93.7 80.0-100.0 fL N MCH 29.8 27.0-33.0 pg N MCHC 31.8 32.0-36.0 g/dL L For adults, a slight decrease in the calculated MCHC value (in the range of 30 to 32 g/dL) is most likely not clinically significant; however, it should be interpreted with caution in correlation with other red cell parameters and the patient's clinical condition. RDW 12.5 11.0-15.0 % N PLATELET COUNT 232 140-400 Thousand/uL N MPV 10.4 7.5-12.5 fL N ABSOLUTE NEUTROPHILS 1170 6017-6884 cells/uL L ABSOLUTE LYMPHOCYTES 1563 530-4524 cells/uL N ABSOLUTE MONOCYTES 227 200-950 cells/uL N ABSOLUTE EOSINOPHILS 70 15-500 cells/uL N ABSOLUTE BASOPHILS 31 0-200 cells/uL N NEUTROPHILS 41.8 N LYMPHOCYTES 46.5 N MONOCYTES 8.1 N EOSINOPHILS 2.5 N BASOPHILS 1.1 N .COMPREHENSIVE METABOLIC VERA EL (94367) CMP Reviewed date:11/19/2024 09:54:11 AM Interpretation: Performing Lab:SANDRINE [facility]-Ajvigg74170 Rachell Rodríguez, GcoyvlHZ[address] Rah Amaya MD Notes/Report: FASTING:YES FASTING: YES GLUCOSE 100 65-99 mg/dL H Fasting reference interval For someone without known diabetes, a glucose value between 100 and 125 mg/dL is consistent with prediabetes and should be confirmed with a follow-up test. UREA NITROGEN (BUN) 12 7-25 mg/dL N CREATININE 0.78 0.50-0.97 mg/dL N EGFR 103 > OR = 60 mL/min/1.73m2 N BUN/CREATININE RATIO SEE NOTE: 6-22 (calc) Not Reported: BUN and Creatinine are within reference range. SODIUM 137 135-146 mmol/L N POTASSIUM 4.6 3.5-5.3 mmol/L N CHLORIDE 102 98-110 mmol/L N CARBON DIOXIDE 26 20-32 mmol/L N CALCIUM 9.0 8.6-10.2 mg/dL N PROTEIN, TOTAL 7.0 6.1-8.1 g/dL N ALBUMIN 4.5 3.6-5.1 g/dL N GLOBULIN 2.5 1.9-3.7 g/dL (calc) N ALBUMIN/GLOBULIN RATIO 1.8 1.0-2.5 (calc) N BILIRUBIN, TOTAL 0.4 0.2-1.2 mg/dL N ALKALINE PHOSPHATASE 48 31-125 U/L N AST 19 10-30 U/L N ALT 12 6-29 U/L N TESTOSTERONE, FREE (DIALYSIS ) AND TOTAL,MS (39022) Reviewed date:09/08/2024 09:04:48 PM Interpretation: Performing Lab:Z3Joaquin [facility]-ZjdHrasiu69[address] [address], [address] HealthLxmlyiuqmrDN[address] Esa Claros MD,PhD Notes/Report: TESTOSTERONE, TOTAL, MS 8 2-45 ng/dL For additional information, please refer to https://coRank.Flooved/faq/ZZV443 (This link is being provided for informational/educational purposes only.) (Note) This test was developed and its analytical performance characteristics have been determined by [employer]. It has not been cleared or approved by the FDA. This assay has been validated pursuant to the CLIA regulations and is used for clinical purposes. TESTOSTERONE, FREE 0.9 0.1-6.4 pg/mL (Note) This test was developed and its analytical performance characteristics have been determined by [employer]. It has not been cleared or approved by the FDA. This assay has been validated pursuant to the CLIA regulations and is used for clinical purposes. [facility] [address] [address],[address] [facility] [address] Esa Claros MD, PhD ZINC (945) Reviewed date:09/05/2024 12:41:27 PM Interpretation: Performing Lab:SAMUEL, [facility]-Khari Wyor[address], Khari PoqbSQ[address] Sunny Peña Notes/Report: ZINC 117 60-130 mcg/dL This test was developed and its analytical performance characteristics have been determined by [facility]. It has not been cleared or approved by the FDA. This assay has been validated pursuant to the CLIA regulations and is used for clinical purposes. T3, FREE (19955) Reviewed date:09/03/2024 08:06:43 AM Interpretation: Performing Lab:SANDRINE [facility]-Izxxuq58957 Rachell [facility], CasyibQJ[address] Rah Amaya MD Notes/Report: T3, FREE 2.7 2.3-4.2 pg/mL N TSH (899) Reviewed date:09/10/2024 08:19:44 AM Interpretation: Performing Lab:Steve DELUCA-Wwlxqf74320 Rachell Zhang, VicobdNE[address] Rah Amaya MD Notes/Report: TSH 1.14 N Reference Range > or = 20 Years 0.40-4.50 Ranges First trimester 0.26-2.66 Second trimester 0.55-2.73 Third trimester 0.43-2.91 T4, FREE (866) Reviewed date:09/03/2024 08:06:49 AM Interpretation: Performing Lab:Steve DELUCA-Qdhvet27848 Rachell Zhang, XyxdjqJK[address] Rah Amaya MD Notes/Report: T4, FREE 1.2 0.8-1.8 ng/dL N FERRITIN (457) Reviewed date:09/03/2024 08:06:55 AM Interpretation: Performing Lab:Steve DELUCA-Whceqy54246Van Zhang, VybbtoXF[address] Rah Amaya MD Notes/Report: FERRITIN 8 16-154 ng/mL L VITAMIN B12/FOLATE, SERUM OK ANNEL (0547) Reviewed date:09/03/2024 08:06:34 AM Interpretation: Performing Lab:Steve DELUCA-Krsvnj53652Van Zhang, LbkxsjVZ[address] Rah Amaya MD Notes/Report: VITAMIN B12 614 583-5945 pg/mL N Please Note: Although the reference range for vitamin B12 is 200-1100 pg/mL, it has been reported that between 5 and 10% of patients with values between 200 and 400 pg/mL may experience neuropsychiatric and hematologic abnormalities due to occult B12 deficiency; less than 1% of patients with values above 400 pg/mL will have symptoms. FOLATE, SERUM >24.0 N Reference Range Low: <3.4 Borderline: 3.4-5.4 Normal: >5.4 ALEXI SCREEN, IFA, W/REFL KATLINE R AND GURWINDER (249) Reviewed date:09/03/2024 08:07:01 AM Interpretation: Performing Lab:Steve DELUCA-Lohnbu51421 Rachell Zhang, XpocjzEM[address] Rah Amaya MD Notes/Report: ALEXI SCREEN, IFA NEGATIVE NEGATIVE N ALEXI IFA is a first line screen for detecting the presence of up to approximately 150 autoantibodies in various autoimmune diseases. A negative ALEXI IFA result suggests an ALEXI-associated autoimmune disease is not present at this time, but is not definitive. If there is high clinical suspicion for Sjogren's syndrome, testing for anti-SS-A/Ro antibody should be considered. Anti-Dorinda-1 antibody should be considered for clinically suspected inflammatory myopathies. AC-0: Negative International Consensus on ALEXI Patterns (https://doi.org/10.1515/c mvn-2260-5941) For additional information, please refer to http://education.[employer]/faq/MXZ721 (This link is being provided for informational/ educational purposes only.) .CBC (INCLUDES DIFF/PLT) (63 99) Reviewed date:09/03/2024 08:07:06 AM Interpretation: Performing Lab:SANDRINE [facility]-Rkrekj51047 Rachell [facility], DhgdryCR[address] Rah Amaya MD Notes/Report: WHITE BLOOD CELL COUNT 6.4 3.8-10.8 Thousand/uL N RED BLOOD CELL COUNT 4.29 3.80-5.10 Million/uL N HEMOGLOBIN 13.3 11.7-15.5 g/dL N HEMATOCRIT 39.3 35.0-45.0 % N MCV 91.6 80.0-100.0 fL N MCH 31.0 27.0-33.0 pg N MCHC 33.8 32.0-36.0 g/dL N For adults, a slight decrease in the calculated MCHC value (in the range of 30 to 32 g/dL) is most likely not clinically significant; however, it should be interpreted with caution in correlation with other red cell parameters and the patient's clinical condition. RDW 11.8 11.0-15.0 % N PLATELET COUNT 251 140-400 Thousand/uL N MPV 11.0 7.5-12.5 fL N ABSOLUTE NEUTROPHILS 4736 6736-4174 cells/uL N ABSOLUTE LYMPHOCYTES 4223 143-4031 cells/uL N ABSOLUTE MONOCYTES 282 200-950 cells/uL N ABSOLUTE EOSINOPHILS 13 15-500 cells/uL L ABSOLUTE BASOPHILS 38 0-200 cells/uL N NEUTROPHILS 74 N LYMPHOCYTES 20.8 N MONOCYTES 4.4 N EOSINOPHILS 0.2 N BASOPHILS 0.6 N IRON AND TOTAL IRON BINDING CAPACITY (7573) Reviewed date:09/03/2024 08:07:15 AM Interpretation: Performing Lab:Steve DELUCA-Mnwbia01089 Edwin Coleman[address] Rah Amaya MD Notes/Report: IRON, TOTAL 146 40-190 mcg/dL N IRON BINDING CAPACITY 408 250-450 mc g/dL (calc) N % SATURATION 36 16-45 % (calc) N .COMPREHENSIVE METABOLIC VERA EL (55127) [facility] Reviewed date:09/03/2024 08:07:11 AM Interpretation: Performing Lab:Steve DELUCA-Dvmusb04264 Rachell Zhang, WagnirBA[address] Rah Amaya MD Notes/Report: GLUCOSE 96 65-99 mg/dL N Fasting reference interval UREA NITROGEN (BUN) 14 7-25 mg/dL N CREATININE 0.81 0.50-0.97 mg/dL N EGFR 99 > OR = 60 mL/min/1.73m2 N BUN/CREATININE RATIO SEE NOTE: 6-22 (calc) Not Reported: BUN and Creatinine are within reference range. SODIUM 138 135-146 mmol/L N POTASSIUM 4.3 3.5-5.3 mmol/L N CHLORIDE 103 98-110 mmol/L N CARBON DIOXIDE 28 20-32 mmol/L N CALCIUM 9.6 8.6-10.2 mg/dL N PROTEIN, TOTAL 7.1 6.1-8.1 g/dL N ALBUMIN 4.9 3.6-5.1 g/dL N GLOBULIN 2.2 1.9-3.7 g/dL (calc) N ALBUMIN/GLOBULIN RATIO 2.2 1.0-2.5 (calc) N BILIRUBIN, TOTAL 0.6 0.2-1.2 mg/dL N ALKALINE PHOSPHATASE 54 31-125 U/L N AST 22 10-30 U/L N ALT 13 6-29 U/L N TSH Reviewed date:07/17/2024 05:31:18 PM Interpretation: Performing Lab:Steve DELUCA-[place], [address] Rachell Zhang, SANDRINE [place], [address] Rah Amaya MD Notes/Report: Reference Range > or = 20 Years 0.40-4.50 Ranges First trimester 0.26-2.66 Second trimester 0.55-2.73 Third trimester 0.43-2.91 TSH 2.62 N T4, FREE Reviewed date:07/17/2024 05:31:18 PM Interpretation: Performing Lab:Steve DELUCA, [place], [address] Rah Amaya MD Notes/Report: T4, FREE 1.1 0.8-1.8 ng/dL N CBC (INCLUDES DIFF/PLT) Reviewed date:07/17/2024 05:31:18 PM Interpretation: Performing Lab:Steve DELUCA, [place], [address] Rah Amaya MD Notes/Report: For adults, a slight decrease in the calculated MCHC value (in the range of 30 to 32 g/dL) is most likely not clinically significant; however, it should be interpreted with caution in correlation with other red cell parameters and the patient's clinical condition. WHITE BLOOD CELL COUNT 3.0 3.8-10.8 Thousand/uL L RED BLOOD CELL COUNT 4.30 3.80-5.10 Million/uL N HEMOGLOBIN 13.1 11.7-15.5 g/dL N HEMATOCRIT 39.2 35.0-45.0 % N MCV 91.2 80.0-100.0 fL N MCH 30.5 27.0-33.0 pg N MCHC 33.4 32.0-36.0 g/dL N RDW 12.6 11.0-15.0 % N PLATELET COUNT 249 140-400 Thousand/uL N MPV 10.4 7.5-12.5 fL N ABSOLUTE NEUTROPHILS 1284 6127-3148 cells/uL L ABSOLUTE LYMPHOCYTES 2089 635-7454 cells/uL N ABSOLUTE MONOCYTES 249 200-950 cells/uL N ABSOLUTE EOSINOPHILS 159 15-500 cells/uL N ABSOLUTE BASOPHILS 21 0-200 cells/uL N NEUTROPHILS 42.8 N LYMPHOCYTES 42.9 N MONOCYTES 8.3 N EOSINOPHILS 5.3 N BASOPHILS 0.7 N T3, FREE Reviewed date:07/17/2024 05:31:18 PM Interpretation: Performing Lab:Steve DELUCA, [place], [address] Rah Amaya MD Notes/Report: T3, FREE 3.1 2.3-4.2 pg/mL N ALEXI IFA SCREEN W/REFL TO TIT ER AND PATTERN, IFA Reviewed date:07/17/2024 05:31:18 PM Interpretation: Performing Lab:Steve DELUCA, [address] [place], [address] Rah Amaya MD Notes/Report: ALEXI IFA is a first line screen for detecting the presence of up to approximately 150 autoantibodies in various autoimmune diseases. A negative ALEXI IFA result suggests an ALEXI-associated autoimmune disease is not present at this time, but is not definitive. If there is high clinical suspicion for Sjogren's syndrome, testing for anti-SS-A/Ro antibody should be considered. Anti-Dorinda-1 antibody should be considered for clinically suspected inflammatory myopathies. AC-0: Negative International Consensus on ALEXI Patterns (https://doi.org/10.1515/ppzr-2098-1358) For additional information, please refer to http://education.[employer]i [employer]/faq/LZI805 (This link is being provided for informational/ educational purposes only.) ALEXI SCREEN, IFA NEGATIVE NEGATIVE N TSH Reviewed date:05/21/2024 08:34:29 PM Interpretation: Performing Lab:Steve DELUCA, [address] [place], [address] Rah Amaya MD Notes/Report: FASTING:YES FASTING: YES Reference Range > or = 20 Years 0.40-4.50 Ranges First trimester 0.26-2.66 Second trimester 0.55-2.73 Third trimester 0.43-2.91 TSH 1.33 N T4, FREE Reviewed date:05/21/2024 08:34:41 PM Interpretation: Performing Lab:Steve DELUCA, [address] [place], [address] Rah Amaya MD Notes/Report: FASTING:YES FASTING: YES T4, FREE 1.1 0.8-1.8 ng/dL N CBC (INCLUDES DIFF/PLT) Reviewed date:05/26/2024 12:51:35 PM Interpretation: Performing Lab:SANDRINE [facility], [address] Rachell [facility] [place], [address] Rah Amaya MD Notes/Report: FASTING:YES FASTING: YES For adults, a slight decrease in the calculated MCHC value (in the range of 30 to 32 g/dL) is most likely not clinically significant; however, it should be interpreted with caution in correlation with other red cell parameters and the patient's clinical condition. WHITE BLOOD CELL COUNT 2.9 3.8-10.8 Thousand/uL L RED BLOOD CELL COUNT 4.19 3.80-5.10 Million/uL N HEMOGLOBIN 12.4 11.7-15.5 g/dL N HEMATOCRIT 38.3 35.0-45.0 % N MCV 91.4 80.0-100.0 fL N MCH 29.6 27.0-33.0 pg N MCHC 32.4 32.0-36.0 g/dL N RDW 11.8 11.0-15.0 % N PLATELET COUNT 230 140-400 Thousand/uL N MPV 11.0 7.5-12.5 fL N ABSOLUTE NEUTROPHILS 1375 5733-2079 cells/uL L ABSOLUTE LYMPHOCYTES 0782 697-6360 cells/uL N ABSOLUTE MONOCYTES 241 200-950 cells/uL N ABSOLUTE EOSINOPHILS 61 15-500 cells/uL N ABSOLUTE BASOPHILS 9 0-200 cells/uL N NEUTROPHILS 47.4 N LYMPHOCYTES 41.9 N MONOCYTES 8.3 N EOSINOPHILS 2.1 N BASOPHILS 0.3 N FERRITIN Reviewed date:05/24/2024 03:35:34 PM Interpretation: Performing Lab:[facility], [address] [place], [phone] Rah Amaya MD Notes/Report: FASTING:YES FASTING: YES FERRITIN 6 16-154 ng/mL L T3, FREE Reviewed date:05/21/2024 08:35:00 PM Interpretation: Performing Lab:[facility], [address] [place], [phone] Rah Amaya MD Notes/Report: FASTING:YES FASTING: YES T3, FREE 3.1 2.3-4.2 pg/mL N COMPREHENSIVE METABOLIC PANE L Reviewed date:05/24/2024 03:35:27 PM Interpretation: Performing Lab:[place], [facility], [address], [place], [address] Rah Amaya MD Notes/Report: FASTING:YES FASTING: YES Fasting reference interval Not Reported: BUN and Creatinine are within reference range. GLUCOSE 91 65-99 mg/dL N UREA NITROGEN (BUN) 9 7-25 mg/dL N CREATININE 0.73 0.50-0.97 mg/dL N EGFR 112 > OR = 60 mL/min/1.73m2 N BUN/CREATININE RATIO SEE NOTE: 6-22 (calc) SODIUM 137 135-146 mmol/L N POTASSIUM 4.6 3.5-5.3 mmol/L N CHLORIDE 104 98-110 mmol/L N CARBON DIOXIDE 27 20-32 mmol/L N CALCIUM 8.9 8.6-10.2 mg/dL N PROTEIN, TOTAL 7.0 6.1-8.1 g/dL N ALBUMIN 4.4 3.6-5.1 g/dL N GLOBULIN 2.6 1.9-3.7 g/dL (calc) N ALBUMIN/GLOBULIN RATIO 1.7 1.0-2.5 (calc) N BILIRUBIN, TOTAL 0.5 0.2-1.2 mg/dL N ALKALINE PHOSPHATASE 48 31-125 U/L N AST 16 10-30 U/L N ALT 11 6-29 U/L N Reason For Referral Reason Low white blood cell count Diagnosis 1 Neutropenia, unspeci fied (D70.9) Referral Organization [facility] Dr. Lucia Referring Provider First Name Jyoti Referring Provider Last Name Khari Referring Provider Speciality Endocrinol [place] Referred Provider Specialty Hematology Referral Priority Routine Reason chronic neutropenia Referral Organization [facility] Dr. Lucia Referring Provider First Name Jyoti Referring Provider Last Name Khari Referring Provider Speciality Endocrinol [place] Referred Provider Specialty Hematology Referral Priority Routine Reason low white count, low iron levels Diagnosis 1 Decreased white bloo d cell count, unspecified (D72.819) Referral Organization [facility] Dr. Lucia Referring Provider First Name Jyoti Referring Provider Last Name Khari Referring Provider Speciality Endocrinol [place] Referred Provider Specialty Hematology Referral Priority Routine Medications Medication SIG (Take, Route, Frequency, Duration) Notes Start Date End Date Status Unithroid 50 MCG Tablet 1 tablet in the morning on an empty stomach Orally Once a day; Duration: 90 days 11/23/2024 Active Unithroid 50 MCG Tablet 1 tablet in the morning on an empty stomach Orally Once a day; Duration: 90 days 07/23/2024 Active Unithroid 50 MCG (0.05 MG) TABLET 1 TAB(S) ORALLY ONCE A DAY; Duration: 90 DAYS *Please review and pick correct strength-formulati on from [employer] options. If intended option is not shown, discontinue and re-order from Quick Search* *Pick strength-form from [employer] for eRX* 02/07/2024 Active Ergocalciferol 1.25 MG (87191 UT) Capsule 1 capsule Orally weekly; Duration: 90 days 11/23/2024 Active Problems Problem Type SNOMED Code ICD Code Onset Dates Problem Status W/U Status Risk Notes Problem Neutropenia (408815152) Neutropenia, unspecified (D70.9) Active confirmed Problem Leukopenia (63891133) Decreased white blood cell count, unspecified (D72.819) Active confirmed Problem Hypothyroidism (17915033) Hypothyroidism, unspecified (E03.9) Active confirmed Problem Autoimmune thyroiditis (18244768) Autoimmune thyroiditis (E06.3) Active confirmed Problem Rheumatoid arthritis (67473402) Rheumatoid arthritis with rheumatoid factor, unspecified (M05.9) Active confirmed Problem Polyarthritis (428126201) Polyarthritis, unspecified (M13.0) Active confirmed Problem Vitamin D deficiency (95005092) Vitamin D deficiency (E55.9) Active confirmed Problem Leukopenia (12646830) Leukopenia (D72.819) Active confirmed Problem Irregular menstruation (79136579) Menstruation, abnormal (N92.6) Active confirmed Vital Signs Heart Rate 68 /min 11/23/2024 Respiratory Rate 12 /min 11/23/2024 Blood pressure diastolic 70 mm Hg 11/23/2024 Weight-kg 62.6 kg 11/23/2024 Height 66 in 11/23/2024 Blood pressure systolic 112 mm Hg 11/23/2024 Weight 138 lbs 11/23/2024 BMI 22.27 kg/m2 11/23/2024 Encounters Encounter Location Date Provider Diagnosis [address] [id number] 05/23/[address] Lucia [address] [place] [phone] 07/23/2024 Jyoti Lucia Autoimmune thyroiditis E06.3 and Neutropenia, unspecified D70.[address] Lucia [address] [place] [address] 11/23/2024 Jyoti Lucia Autoimmune thyroiditis E06.3 ; Hypothyroidism, unspecified E03.9 ; Neutropenia, unspecified D70.9 ; Rheumatoid factor positive R76.8 ; Menstruation, abnormal N92.6 and Vitamin D deficiency E55.9 [facility] [place] [phone] 05/11/2024 Jyoti Lucia [address] [place] [address] 05/26/2024 Jyoti Lucia [address] [place] [address] 05/26/2024 Jyoti MAURICIO [address] [address] 08/31/2024 Jyoti Lucia [address] [place], [place] [phone] 11/02/2024 [place] [address] 11/23/2024 Jyoti Lucia [address] [place], [place] [phone] 12/03/2024 [place] [address] 01/13/2025 Jyoti Lucia Assessments Encounter Date Diagnosis (ICD Code) Assessment Notes Treatment Notes Treatment Clinical Notes Section Notes 07/23/2024 Autoimmune thyroiditis (ICD-10 - E06.3) 11/23/2024 Hypothyroidism, unspecified (ICD-10 - E03.9) it 11/23/2024 Autoimmune thyroiditis (ICD-10 - E06.3) it 11/23/2024 Neutropenia, unspecified (ICD-10 - D70.9) it 07/23/2024 Neutropenia, unspecified (ICD-10 - D70.9) 11/23/2024 Rheumatoid factor positive (ICD-10 - R76.8) it 11/23/2024 Menstruation, abnormal (ICD-10 - N92.6) it 11/23/2024 Vitamin D deficiency (ICD-10 - E55.9) it 07/23/2024 Other Assessment and Plan: Rheumatoid Arthritis (RA)Patient had follow-up with rheumatology in May, showing resolved inflammation in the wrist and a decreased cyst size. Straightedge Man does not believe it is active RA at present.Annual follow-up with rheumatology recommendedMonitor rheumatoid factor yearlyPerform CCP and rheumatoid antibodies panel annuallyConduct sed rate, CCP, and other tests if arthritis symptoms recur NeutropeniaPatient has persistently low white blood cell counts for two years, with recent cold noted prior to testing. Neutropenia confirmed, but cause remains undetermined.Referral to medical receptionist Dr. Jeremy Schwartz for further evaluationContinue monitoring complete blood count Iron Deficiency AnemiaPatient reports anemia since giving , with low ferritin levels noted, consistent with iron deficiency. Current iron supplement may be inadequate.Increase iron intake to at least 65 mg of elemental iron dailyConsider dietary modifications or alternative iron supplementsPerform lab work one week before menstrual cycle starts HypothyroidismPatient is currently on Unithroid with good effect. Recent TSH increase noted but still under 2.5, which is within acceptable range.Continue Unithroid at current doseRef[facility] Follow-up:Encourage patient to contact the clinic if any new or worsening symptoms occur Spent 25 minutes preparing to see the patient (ex review of tests/chart), obtaining and / or reviewing separately obtained history, performing a medically appropriate examination and/or evaluation, counseling and educating the patient/family/caregi dulce maria, ordering medications, tests, or procedures, referring and communicating with other health senior resident care director, documenting clinical information in the electronic or other health record, independently interpreting results and communicating results to the patient/family/caregi dulce maria and care coordinating patient plan. Patient alert and oriented x 4 and aware of discussion noted above and in agreeance to plan in management of autoimmune thyroiditis, fatigue and hx of arthritis/may be reactive vs autoimmune. Due to the nature of telemedicine, the ability to do physical assessment was limited to what can be accomplished by patient directed telehealth visit based on instruction. Those limits are understood by the patient and myself. Impression is based on history, available information, and physical findings accomplished with telehealth visit. Chronic disease/problem list/ medication list reviewed and updated where indicated. Discussed diagnosis, plan including risks, benefits, and options of treatment. Advised to call for new, worsening, or persistent symptoms. Level of patient risk was of moderate complexity due to the documented nature of presentation, the information assessment required and the nature of the development of an evaluation and treatment plan as documented. PMH, FHx, SHx, Surgical Hx, Quality management review carried out and addressed as documented today as part of this visit. Medication list was reviewed and adjusted as indicated. Medication requiring a refill was addressed. Risk and benefits of any new medications were discussed and all questions were answered. 11/23/2024 Other Assessment and Plan: 1. Hypothyroidism- Continue Unithroid 50 mcg PO daily, taken in the morning on an empty stomach- Reassess thyroid function in 2-3 months 2. Iron Deficiency Anemia- Increase iron supplementation to 65 mg elemental iron PO daily- Recommend [employer] brand iron supplement- Order ferritin level with next lab draw 3. Menorrhagia- Order progesterone and estrogen levels on day 20-21 of menstrual cycle- Consider low-dose progesterone supplementation pending hormone test results 4. History of Viral Arthritis- Continue follow-up with rack maker as scheduled in May- Monitor for changes in joint symptoms or rheumatoid factor levels 5. Leukopenia- Refer to medical receptionist Dr. Schwartz for evaluation of persistent leukopenia- Have medical office clerk facilitate hematology referral 6. Vitamin D Deficiency- Prescribe vitamin D2 weekly dosage- Continue current vitamin D3 spray regimen 7. Vitamin B12 Deficiency- Continue current methyl B12 supplementation- Consider B12 injections if levels do not improve Spent 25 minutes preparing to see the patient (ex review of tests/chart), obtaining and / or reviewing separately obtained history, performing a medically appropriate examination and/or evaluation, counseling and educating the patient/family/caregi dulce maria, ordering medications, tests, or procedures, referring and communicating with other health senior resident care director, documenting clinical information in the electronic or other health record, independently interpreting results and communicating results to the patient/family/caregi dulce maria and care coordinating patient plan. Patient alert and oriented x 4 and aware of discussion noted above and in agreeance to plan in management of autoimmune thyroiditis/hypothyro idism, neutropenia chronic in nature, iron def anemia, rheumatoid factor positive/arthritis. Due to the nature of telemedicine, the ability to do physical assessment was limited to what can be accomplished by patient directed telehealth visit based on instruction. Those limits are understood by the patient and myself. Impression is based on history, available information, and physical findings accomplished with telehealth visit. Chronic disease/problem list/ medication list reviewed and updated where indicated. Discussed diagnosis, plan including risks, benefits, and options of treatment. Advised to call for new, worsening, or persistent symptoms. Level of patient risk was of moderate complexity due to the documented nature of presentation, the information assessment required and the nature of the development of an evaluation and treatment plan as documented. PMH, FHx, SHx, Surgical Hx, Quality management review carried out and addressed as documented today as part of this visit. Medication list was reviewed and adjusted as indicated. Medication requiring a refill was addressed. Risk and benefits of any new medications were discussed and all questions were answered. it Plan Of Treatment No Information Insurance Providers Payer Name Payer Address Payer Phone Subscriber Number Group Number Insured Name Patient Relationship to Insured Coverage Start Date Coverage End Date [employer] ([employer]) [address] [address] [place], [place] [phone] [id number] Danyelle Ying Self - patient is the insured Medical (General) History Medical History History ICD Code hypothyroidism
--- OUTSIDE RECORDS SUMMARY | 2025-04-24 09:42 | XMS_ITS | Patient Health Record ---
[facility] Address [address] [address] Care Team Providers Care Dj Instructor Name Role Phone Khari Jyoti Primary Care Provider Migration, Provider Unavailable Unavailable Allergies No Known Allergies Results Component Value Reference Range Notes COMPREHENSIVE METABOLIC PANE L Reviewed date:05/24/2024 03:35:27 PM Interpretation: Performing Lab:[facility], [address] [place], [address] Rah Amaya MD Notes/Report: FASTING:YES FASTING: YES T3, FREE Reviewed date:05/21/2024 08:35:00 PM Interpretation: Performing Lab:[facility], [address] [place], [address] Rah Amaya MD Notes/Report: FASTING:YES FASTING: YES FERRITIN Reviewed date:05/24/2024 03:35:34 PM Interpretation: Performing Lab:[facility], [address] [place], [address] Rah Amaya MD Notes/Report: FASTING:YES FASTING: YES CBC (INCLUDES DIFF/PLT) Reviewed date:05/26/2024 12:51:35 PM Interpretation: Performing Lab:[facility], [address] [place], [address] Rah Amaya MD Notes/Report: FASTING:YES FASTING: YES T4, FREE Reviewed date:05/21/2024 08:34:41 PM Interpretation: Performing Lab:[facility], [address] [place], [address] Rah Amaya MD Notes/Report: FASTING:YES FASTING: YES TSH Reviewed date:05/21/2024 08:34:29 PM Interpretation: Performing Lab:[facility], [address], [place], [address] Rah Amaya MD Notes/Report: FASTING:YES FASTING: YES ALEXI IFA SCREEN W/REFL TO TIT ER AND PATTERN, IFA Reviewed date:07/17/2024 05:31:18 PM Interpretation: Performing Lab:[facility], [address], [place], [address] Rah Amaya MD Notes/Report: T3, FREE Reviewed date:07/17/2024 05:31:18 PM Interpretation: Performing Lab:[facility], [address], [place], [address] Rah Amaya MD Notes/Report: CBC (INCLUDES DIFF/PLT) Reviewed date:07/17/2024 05:31:18 PM Interpretation: Performing Lab:[facility], [address], [place], [address] Rah Amaya MD Notes/Report: T4, FREE Reviewed date:07/17/2024 05:31:18 PM Interpretation: Performing Lab:[facility], [address], [place], [address] Rah Amaya MD Notes/Report: TSH Reviewed date:07/17/2024 05:31:18 PM Interpretation: Performing Lab:[facility], [address], [place], [address] Rah Amaya MD Notes/Report: COMPREHENSIVE METABOLIC PANE L (Not yet reviewed by provider) Interpretation: Performing Lab:[facility], [address], [place], [address] Rah Amyaa MD Notes/Report: ALEXI IFA SCREEN W/REFL TO TIT ER AND PATTERN, IFA (Not yet reviewed by provider) Interpretation: Performing Lab:[facility], [address], [place], [address] [facility] Jose Luis FIGUEROA Notes/Report: T3, FREE (Not yet reviewed b y provider) Interpretation: Performing Lab:SANDR[facility], [facility], [address], [place], [address] [facility] Gianfranco Amaya MD Notes/Report: FERRITIN (Not yet reviewed b y provider) Interpretation: Performing Lab:SANDRINE, [facility], [address], [place], [address] [facility] Jose Luis FIGUEROA Notes/Report: CBC (INCLUDES DIFF/PLT) (Not yet reviewed by provider) Interpretation: Performing Lab:[facility], [address], [place], [address] [facility] Jose Luis FIGUEROA Notes/Report: VITAMIN B12/FOLATE, SERUM PA ANNLE (Not yet reviewed by provider) Interpretation: Performing Lab:[facility], [address], [place], [address] [facility] Jose Luis FIGUEROA Notes/Report: IRON AND TOTAL IRON BINDING CAPACITY (Not yet reviewed by provider) Interpretation: Performing Lab:[facility], [address], [place], [address] [facility] Jose Luis FIGUEROA Notes/Report: T4, FREE (Not yet reviewed b y provider) Interpretation: Performing Lab:[facility], [address], [place], [address] [facility] Jose Luis FIGUEROA Notes/Report: TSH (Not yet reviewed by pro vider) Interpretation: Performing Lab:[facility], [address], [place], [place], [address] [facility] Jose Luis FIGUEROA Notes/Report: ZINC (Not yet reviewed by sera merchant) Interpretation: Performing Lab:SAMUEL, [facility] [place], [address], [place], [address] Sunny Peña Notes/Report: TESTOSTERONE, FREE (DIALYSIS ) AND TOTAL,MS (Not yet reviewed by provider) Interpretation: Performing Lab:[facility], [facility], [address] [address], [address], [place], [address] Esa Claros MD,PhD Notes/Report: Reason For Referral Reason Low white blood cell count Diagnosis 1 Neutropenia, unspeci fied (D70.9) Referral Organization [facility] [place] Referring Provider First Name Jyoti Referring Provider Last Name [place] Referring Provider [facility] Internal edicine Referred Provider Specialty Hematology Referral Priority Routine Reason chronic neutropenia Referral Organization [facility] [place] Referring Provider First Name Jyoti Referring Provider Last Name [place] Referring Provider [facility] edicine Referred Provider Specialty Hematology Referral Priority Routine Medications Medication SIG (Take, Route, Frequency, Duration) Notes Start Date End Date Status Unithroid 50 MCG (0.05 MG) 1 TAB(S) ORALLY ONCE A DAY; Duration: 90 DAYS *Please review and pick correct strength-formulation from [employer] options. If intended option is not shown, discontinue and re-order from [employer]* 02/07/2024 Active Unithroid 50 MCG 1 tablet in the morning on an empty stomach Orally Once a day; Duration: 90 days 07/23/2024 Active Problems Problem Type SNOMED Code ICD Code Onset Dates Problem Status W/U Status Risk Notes Problem Hypothyroidism (23851019) Hypothyroidism, unspecified (E03.9) Active confirmed Problem Neutropenia (745967333) Neutropenia, unspecified (D70.9) Active confirmed Problem Leukopenia (17048364) Decreased white blood cell count, unspecified (D72.819) Active confirmed Problem Autoimmune thyroiditis (50197958) Autoimmune thyroiditis (E06.3) Active confirmed Problem Rheumatoid arthritis (15425858) Rheumatoid arthritis with rheumatoid factor, unspecified (M05.9) Active confirmed Problem Polyarthritis (588007217) Polyarthritis, unspecified (M13.0) Active confirmed Vital Signs Heart Rate 72 /min 07/23/2024 Respiratory Rate 12 /min 07/23/2024 Blood pressure diastolic 72 mm Hg 07/23/2024 Height 66 in 07/23/2024 Blood pressure systolic 114 mm Hg 07/23/2024 Weight 142 lbs 07/23/2024 BMI 22.92 kg/m2 07/23/2024 Encounters Encounter Location Date Provider Diagnosis [facility] [address] [place] [address] 05/23/2024 Provider Migration [facility], [facility] [address] [place] [address] 07/23/2024 Jyoti [place] Autoimmune thyroiditis E06.3 and Neutropenia, unspecified D70.9 [facility] [address] [place] [address] 05/11/2024 Jyoti [facility], [facility] [place] [address] [place] [address] 05/26/2024 Jyoti [facility], [place] [facility] [place] [address] [place] [address] 05/26/2024 Jyoti [facility], [place] [address] [place] [address] 08/28/2024 Jyoti [facility], [place] [place] [address] [place] [address] 10/27/2024 Jyoti [facility] Assessments Encounter Date Diagnosis (ICD Code) Assessment Notes Treatment Notes Treatment Clinical Notes Section Notes 07/23/2024 Autoimmune thyroiditis (ICD-10 - E06.3) 07/23/2024 Neutropenia, unspecified (ICD-10 - D70.9) 07/23/2024 Other Assessment and Plan: Rheumatoid Arthritis (RA)Patient had follow-up with rheumatology in May, showing resolved inflammation in the wrist and a decreased cyst size. Editor Sound does not believe it is active RA at present.Annual follow-up with rheumatology recommendedMonitor rheumatoid factor yearlyPerform CCP and rheumatoid antibodies panel annuallyConduct sed rate, CCP, and other tests if arthritis symptoms recur NeutropeniaPatient has persistently low white blood cell counts for two years, with recent cold noted prior to testing. Neutropenia confirmed, but cause remains undetermined.Referral to inspector and clipper Dr. Jeremy Schwartz for further evaluationContinue monitoring [...] Unithroid at current doseRefill [facility] in 4 months Follow-up:Encourage [...] procedures, referring and communicating with other health critical care registered nurse, documenting clinical information in the electronic or [...] were discussed and all questions were answered. Plan Of Treatment Pending Test Test Name Order Date COMPREHENSIVE METABOLIC PANEL 09/01/2024 ALEXI IFA SCREEN W/REFL TO TITER AND NATALYA ROMERO, IFA 09/01/2024 T3, FREE 09/01/2024 FERRITIN 09/01/2024 CBC (INCLUDES DIFF/PLT) 09/01/2024 VITAMIN B12/FOLATE, SERUM PANEL 09/01/19 25 IRON AND TOTAL IRON BINDING CAPACITY T4, FREE 09/01/2024 TSH 09/01/2024 ZINC 09/01/2024 TESTOSTERONE, FREE (DIALYSIS) AND TOTAL, MS 09/01/2024 Insurance Providers Payer Name Payer Address Payer Phone Subscriber Number Group Number Insured Name Patient Relationship to Insured Coverage Start Date Coverage End Date [employer] [address] [address] [place] [id number] Danyelle Odom Self - patient is the insured Medical (General) History Medical History History ICD Code hypothyroidism
--- OUTSIDE RECORDS SUMMARY | 2025-04-24 09:42 | XMS_ITS | Clinical Summary ---
Author Organization [facility] Address [address] [place] [id number] Care Team Providers Care Wood Block Artist Name Role Phone Jassi Waite MD Primary Care Provider [phone]- [phone] Allergies No known active allergies Medications Unithroid 50 mcg tablet Take 1 Tablet by mouth daily. 01/13/2025 Active Active Problems No known active problems Encounters Date Type Department Care Team Description 04/20/2025 External Device Data [facility] ABSTRACTION Provider, Abstract 04/20/2025 External Device Data [facility] ABSTRACTION Provider, Abstract 04/20/2025 External Device Data [facility] ABSTRACTION Provider, Abstract 04/15/2025 10:30 AM CDT Office Visit [facility] Oncology and Hematology - [facility] Jerome Braden [address] [id number] Jeremy Schwartz MD Chronic anemia (Primary Dx); Leukopenia, unspecified type from Last 3 Months Family History Medical History Relation Name Comments No Known Problems Brother 1 No Known Problems Brother 2 No Known Problems Brother 3 No Known Problems Child 1 No Known Problems Child 2 No Known Problems Child 3 No Known Problems Child 4 No Known Problems Father No Known Problems Mother No Known Problems Sister Relation Name Status Comments Brother 1 Alive Brother 2 Alive Brother 3 Alive Child 1 Alive Child 2 Alive Child 3 Alive Child 4 Alive Father Alive Mother Alive Sister Alive Social History Tobacco Use Types Packs/Day Years Used Date Smoking Tobacco: Never Smokeless Tobacco: Never Alcohol Use Standard Drinks/Week Comments Yes 0 (1 standard drink = 0.6 oz pur e alcohol) Occasionally Comments No Sex and Gender Information Value Date Recorded Sex Assigned at Not on file Legal Sex Female 12:19 PM CDT Gender Identity Not on file Sexual Orientation Not on file Last Filed Vital Signs Vital Sign Reading Time Taken Comments Blood Pressure 134/79 04/15/2025 10:16 AM CDT Pulse 67 04/15/2025 10:16 AM CDT Temperature 36.3 C (97.4 F) 04/15/2025 10:16 AM CDT Respiratory Rate 14 04/15/2025 10:16 AM CDT Oxygen Saturation 98% 04/15/2025 10:16 AM CDT Inhaled Oxygen Concentration - - Weight 63.2 kg (139 lb 6.4 oz) 04/15/2025 10:16 AM CDT Height 167.6 cm (5' 6) 04/15/2025 10:16 AM CDT Body Mass Index 22.5 04/15/2025 10:16 AM CDT Plan of Treatment Upcoming Encounters Date Type Department Care Team (Late st Contact Info) Description 05/03/2025 4:30 PM CDT Telephone Check Up [facility] Oncology and Hematology - [place] [address] [facility] [address] [place] [address] Jeremy Schwartz MD [address] [facility] [address] [place] [address] Health Maintenance Due Date Last Done Comments DTAP/TDAP/TD VACCINES (1 - Tdap) 02/08/2011 HEPATITIS B VACCINES (1 of 3 - 19+ 3-dose series) 10/2010 HPV/Cotest (21-29) 02/08/2013 HPV VACCINES (1 - 3-dose SCDM series) 02/08/2019 CERVICAL CANCER SCREENING 02/08/2022 HPV/Cotest (30-65) 02/08/2022 PAP SMEAR 02/08/2022 Preventative Visit- Commercial 07/08/2024 INFLUENZA VACCINE (#1) 2025 Insurance [facility] PPO [employer] PPO [id number] Care Teams Wood Block Artist Relationship Specialty Start Date End Date Jassi Waite MD PCP - General Family Practice 04/29/15
== END 2025-04-24 09:37 | disposition home or self-care (01) ==
PROVIDERS: PCP Physician Assistant; Visit Provider Internal Medicine Hematology & Oncology
DX: D72.819 Decreased white blood cell count, unspecified (principal)
CPT/HCPCS: 76700